=== PATIENT | female | born 1955 | race Caucasian/White ===

== ENCOUNTER 2023-03-21 06:20 | Day surgery (SDC) | payer OTHER ==
[~2023-03-21] VITALS: Ht 167.6 cm; Wt 71.8 kg
[2023-03-21 06:33] VITALS: BP 115/42
[2023-03-21] MEDS ORDERED: VITAMIN D250 MCG PO (06:35)
[2023-03-21] MEDS ORDERED: LIPITOR20 MG (06:35)
[2023-03-21] MEDS ORDERED: B COMPLEX1 EACH PO (06:36)
[2023-03-21 06:47] VITALS: BP 121/50
--- NOTE | 2023-03-21 08:50 | NUR ---
03/21/23 0893 George Fernandez 0838 PATIENT ARRIVED TO PACU AWAKE AND ALRT ABLE TO ANSWER QUESTIONS. PATIENT WAS ON 2L NC WITH SAT AT 98%. PATIENT DENIED PAIN AND NAUSEA. ENCOURAGED TO PASS GAS AT THIS TIME. PATIENT IS PASSING GAS SUCCESSFULLY AND IS CURRENTLY RESTING. 0845 PATIENT HAS PASSED GAS MULTIPLE TIMES. PATIENT STILL DENIES PAIN AND NAUSEA. PATIENT 02 HAS BEEN REMOVED AND IS SAT AT 93% ON ROOM AIR. PATIENT OFFERED THE CHANCE TO SIT UP WHEN READY.
[2023-03-21 09:02] VITALS: BP 110/65
--- NOTE | 2023-03-21 09:16 | NUR ---
0915: PT RETURNS TO DAYSURGERY VIA STRTCHER TO WAIT FOR CT SCAN. PRE AUTHORIZATION FILED BY MD KRYSTAL'S OFFICE. TC TO LAB AND NOTIFIED OF PT ARRIVAL. TECH TO COME DRAW. PT COMFORTABLE WITHOUT NEEDS. CALL LIGHT WITHIN REACH
[2023-03-21 09:25] LABS: BASOPHILS 0.4 % (0-2); EOSINOPHILS 0.7 % (0-6); HEMATOCRIT 36.9 % (35.0-50.0); HEMOGLOBIN 12.2 g/dL (12.0-18.0); LYMPHOCYTES 14.2 % (24-44); MCH 27.6 (27-36); MCV 83.6 fl (81-99); MONOCYTES 4.3 % (0-12); NEUTROPHILS 80.4 % (39-80); PLATELET COUNT 259 K/uL (140-440); RBC 4.41 M/ul (4.3-5.7); RDW 14.7 (10.5-15.0)
[2023-03-21 09:43] LABS: ALBUMIN 3.3 g/dL (3.4-5.0); ALBUMIN/GLOBULIN RATIO 1.14 (1.1-2.4); ANION GAP 9.6 (7-21); BILIRUBIN, TOTAL 0.5 ng/dL (0.2-1.0); BUN/CREATININE RATIO 10.6 (6.0-28.6); CALCIUM 8.6 mg/dL (8.5-10.1); CREATININE, SERUM 0.66 mg/dL (0.55-1.02); POTASSIUM 3.6 mmol/L (3.5-5.1); PROTEIN, TOTAL 6.2 g/dL (6.4-8.2)
[2023-03-22 13:45] LABS: CARCINOEMBRYONIC ANTIGEN 3.6 ng/mL (<=3.8)
--- NOTE | 2023-03-22 20:22 | OR ---
[facility] [address], [place] [address] Signed DATE OF OPERATION: 03/21/2023 SURGEON: Samira Rice MD PREOPERATIVE DIAGNOSES: 1. Persistent progressive diarrhea with excess flatulence. 2. Family history of cancer in father (unknown type). POSTOPERATIVE DIAGNOSIS: Rectosigmoid malignancy. PROCEDURES: 1. Total colonoscopy to cecum with hot snare polypectomy of adjacent appearing malignant polyp and biopsy of tumor. 2. Endomark tattoo application. ANESTHESIA: Intravenous sedation; fentanyl 150 mcg and Versed 7 mg. INDICATION: This 67-year-old white woman is a patient of COURT Chang. She is referred for colonoscopy. She has never had colon evaluation in the past. She has a family history of cancer in her father of an unknown type. The patient has had progressive diarrhea and complains of gas, but no blood per rectum. She is admitted at this time to undergo colonoscopy. She understands the risk of bleeding, infection, and perforation. FINDINGS: Malignancy was identified. This was at the rectosigmoid. It extended from 15 cm from the anal verge proximally to about 25 cm. Circumferential involvement was noted. A separate malignant-appearing polyp was noted inferior to the lower margin of the tumor, which was excised with hot snare technique. Tattoo was applied proximally and distally. The amount of rectum spared is probably 10 cm to 15 cm. More proximal colon showed no sign of lesion. The prep cephalad to the lesion was poor, though adequate for identification of gross lesions. DESCRIPTION OF PROCEDURE: The patient was brought to the endoscopy suite and placed in the lateral decubitus position, given intravenous sedation to the point of slurred speech and nystagmus. Full cardiopulmonary monitoring was maintained. Digital rectal examination was normal. Electronically Signed By: SAMIRA RICE MD 03/22/232021 PATIENT NAME: TONA SHELBY OPERATIVE REPORT DATE OF : 57 REPORT #: [id number] PHYSICIAN: SAMIRA RICE MD PCP: NATHALY CALDERÓN PA-C REPORT IS CONFIDENTIAL AND NOT TO BE RELEASED WITHOUT AUTHORIZATION [facility] [address], [place] [address] Signed An Olympus video colonoscope was passed in the rectum and manipulated into the rectosigmoid where immediately noted was a polypoid lesion highly suspect for malignancy. With various manipulations, the scope was passed beyond this and more proximally in the colon. The more proximal colon was poorly prepped overall. Irrigation was required. The scope was advanced as far as possible ultimately intubating the right colon and visualizing the cecum. Irrigation was undertaken and the scope was then withdrawn. There were no proximal lesions of concern. At approximately 25 cm from the anal verge, the neoplasm was identified once again. Multiple biopsies were taken of the circumferentially involved lesion. Endomark tattoo dye was applied to identify the more proximal margin for the future. The scope was withdrawn and a bulky polyp adjacent to the frankly neoplastic lesion was identified and excised with hot snare technique. Distal to this, Endomark tattoo dye was applied. As best can tell the lesion is approximately 15 cm from the anal verge and the rectum itself was normal. Retroflexed view showed no sign of abnormality. The scope was withdrawn and removed. The patient was taken to the recovery room in good condition. CONCLUDING DIAGNOSIS: Malignancy of the rectosigmoid. PLAN: She will need low anterior resection. We will obtain a CT scan and lab studies including Chem 20, CBC and a CEA. MD CHUCK Chacon/SANDORL /[id number] cc: Nathaly Calderón PA-C Copies: NATHALY CALDERÓN PA-C ~ Electronically Signed By: SAMIRA RICE MD 03/22/232021 PATIENT NAME: TONA SHELBY OPERATIVE REPORT DATE OF : 57 REPORT #: [id number] PHYSICIAN: SAMIRA RICE MD PCP: NATHALY CALDERÓN PA-C REPORT IS CONFIDENTIAL AND NOT TO BE RELEASED WITHOUT AUTHORIZATION
--- NOTE | 2023-03-25 14:44 | PATH ---
[facility] [address], [place] [address] Signed SPECIMEN(S): A COLON BIOPSY AT 18 CM SPECIMEN(S): B COLON POLYP AT 15 CM SPECIMEN SOURCE: A. COLON BIOPSY AT 18 CM B. COLON POLYP AT 15 CM CLINICAL HISTORY: Colonoscopy. Screening. Diarrhea/gas FINAL PATHOLOGIC DIAGNOSIS: A. Colon biopsy at 18 cm: - Invasive moderately-differentiated adenocarcinoma. B. Colon polyp at 15 cm: - Tubular adenoma. - Polyp stalk is free of dysplasia on these sections. COMMENT: Microsatellite instability testing by immunohistochemistry is pending and will be reported in an addendum. The diagnostic notification to the office of Dr. Villavicencio is initiated by Dr. Heck and will be recorded separately. As part of [facility]' Quality Improvement Program, this case was reviewed by another member of our pathology staff. JVR:BOBY:luz MICROSCOPIC EXAMINATION: Histologic sections of all submitted blocks are examined by light microscopy. These findings, together with the gross examination, support the pathologic diagnosis. GROSS DESCRIPTION: A. The specimen, labeled and designated "Tip, colon biopsy at 18 cm," is received in formalin and consists of five hawthorne soft tissue fragments, ranging from 0.1-0.4 cm. Entirely submitted in (A1). B. The specimen, labeled and designated "Tip, colon polyp at 15 cm," is received in formalin and consists of a bosselated polyp of red-brown soft tissue (2.5 x 1.5 x 1.5 cm). The possible resection margin is inked blue, and the tissue is serially sectioned to reveal brown-hawthorne soft cut surfaces. The specimen is submitted entirely in cassette (B1-B3). PATIENT NAME: TONA SHELBY PATHOLOGY DATE OF : 57 REPORT #: [id number] PHYSICIAN: DONNIE AVENDANO PCP: AMY CHAN PA-C REPORT IS CONFIDENTIAL AND NOT TO BE RELEASED WITHOUT AUTHORIZATION [facility] [address], [place] [address] Signed VB (under the direct supervision of a pathologist) The Gross Description was prepared using a voice recognition system. The report was reviewed for accuracy; however, sound-alike word errors, addition and/or deletions may occur. If there is any question about this report, please contact Client Services. PERFORMING LABORATORY: Technical component was performed by [facility], [address] [place] [address] (CLIA# [id number]). Professional interpretation was performed by [facility] - [address] [address] (CLIA#: [id number]). Diagnostician: Oumar Heck MD Pathologist Electronically Signed 03/25/2023 Copies: ~ PATIENT NAME: TONA SHELBY PATHOLOGY DATE OF : 57 REPORT #: [id number] PHYSICIAN: DONNIE AVENDANO PCP: AMY CHAN PA-C REPORT IS CONFIDENTIAL AND NOT TO BE RELEASED WITHOUT AUTHORIZATION
== END 2023-03-21 09:07 | disposition home or self-care (01) ==
LOC: OPS 06:20 → DS 06:20 → OPS 07:30 → DS 07:30 → OPS 09:07
PROVIDERS: ATTEND Surgery
PROC: 0DBN8ZX Excision of Sigmoid Colon, Via Natural or Artificial Opening Endoscopic, Diagnostic (ICD-10-PCS; principal; 2023-03-21 07:30)
DX: C19 Malignant neoplasm of rectosigmoid junction (principal); D12.6 Benign neoplasm of colon, unspecified; E78.5 Hyperlipidemia, unspecified; Z80.0 Family history of malignant neoplasm of digestive organs; Z80.9 Family history of malignant neoplasm, unspecified; Z88.2 Allergy status to sulfonamides; Z90.711 Acquired absence of uterus with remaining cervical stump; Z90.49 Acquired absence of other specified parts of digestive tract
CPT/HCPCS: 36415; 74177; 80053; 82378; 85025; 99153; G0500; J2250; J3010; J7121; Q9967

== ENCOUNTER 2023-04-12 11:14 | Inpatient (IN) | payer OTHER ==
[~2023-04-12] VITALS: Ht 167.6 cm; Wt 65.0 kg
[~2023-04-12 11:14] MED LIST: LIPITOR20 MG PO; VITAMIN B-125000 MCG SL; VITAMIN D250 MCG PO
[2023-04-13 13:22] VITALS: BP 113/57
[2023-04-19 08:27] VITALS: BP 102/73
[2023-04-19] MEDS ORDERED: VITAMIN D350 MC3 PO (08:29)
--- NOTE | 2023-04-19 15:44 | NUR ---
04/19/23 1544 Sheets,Christel 1538 PT ARRIVED TO PACU ON 6L VIA MASK, CHIN LIFT USED OFF AND ON TO MAINTAIN AIRWAY, PT NONAROUSABLE. VSS.
[2023-04-19 16:30] VITALS: BP 90/49
--- NOTE | 2023-04-19 16:30 | NUR ---
RECIEVED REPORT FROM REGLA NESS. PT ARRIVES TO UNIT IN BED. FAMILY IN ROOM. PT DENIES PAIN AT THIS TIME. VSS. CPOX IN PLACE, O2 SATURATION >95%. PT WAS 98% ON 2L VIA NC, RA TRIAL WITH PT CONTINUING TO HAVE O2 SATURATION >95%. PT A+O X3. PT DENIES NAUSEA AT THIS TIME, WATER AT THE BEDSIDE, PT TAKING SMALL SIPS. EDUCATION ON NOT DRINKING WATER TOO QUICKLY AFTER SURGERY, PT VERBALIZES UNDERSTANDING. ABDOMEN SOFT, TENDER TO PALPATION, BOWEL TONES ACTIVE IN ALL QUANDRANTS. LAST BM TODAY PRIOR TO SURGERY. PT ON CLEAR LIQUID DIET, TOLERATING SMALL SIPS OF WATER. MORALES CATHETER IN PLACE, PRESENT ON ADMISSION DRAINING QUANTITY SUFFICIENT CLEAR YELLOW URINE VIA GRAVITY. MIDLINE INCISION COVERED WITH ACTICOAT PER PACU NURSE. INCISION SITE WNL, NO REDNESS/SWELLING. SMALL AMOUNT OF RED SHADOWING ON DRESSING. SANDIE DRAIN IN PLACE IN LLQ, INSERTION SITE COVERED WITH SURGICAL DRESSING, DRESSING C/D/I. SMALL AMOUNT OF RED DRAINAGE PRESENT IN DRAIN BULB. PT STATES NO NEEDS AT THIS TIME, FAMILY AT THE BEDSIDE, CALL LIGHT EDUCATION PROVIDED, PT VERBALIZES UNDERSTANDING, BED RAILS UP.
[2023-04-19 17:18] VITALS: BP 96/38
--- NOTE | 2023-04-19 17:24 | NUR ---
VSS. CPOX IN PLACE, O2 SATURATION >95% ON RA. RECEIVED CALL FROM DR. RICE, NEW ORDERS GIVEN, ENTERED, REPEAT BACK PERFORMED. LUNG SOUNDS CLEAR, PT TOLERATING RA WITH O2 SATURATION >95%. ABDOMEN SOFT, TENDER TO PALPATION. SURGICAL DRESSING UNCHANGED SINCE PREVIOUS. MORALES CATHETER REMAINS IN PLACE, DRAINING CLEAR YELLOW URINE VIA GRAVITY. SANDIE DRAIN UNCHANGED FROM PREVIOUS. PT DENIES PAIN AT THIS TIME. PT STATES NO FURTHER NEEDS AT THIS TIME, CALL LIGHT WITHIN REACH, FAMILY AT THE BEDSIDE.
--- NOTE | 2023-04-19 17:30 | NUR ---
REPORT RECIEVED FROM REGLA NESS. REGLA ROMERO ASSUMING CARE OF WITH ASSISTANCE FROM THIS RN.
--- NOTE | 2023-04-19 18:13 | NUR ---
PT POST-OP DAY 0 FROM SIGMOID COLECTOMY. PT HAS NOT AMBULATED SINCE ARRIVING TO UNIT THIS AFTERNOON. PT ON CLEAR LIQUID DIET, TOLERATING SIPS OF WATER WELL. LAST BM THIS MORNING PRIOR TO SURGERY. BLOOD PRESSURE HAS BEEN SOFT SINCE PRIOR TO SURGERY. PT IS A CURRENT SMOKER, NICOTINE PATCH PROVIDED PER PT REQUEST. CPOX IN PLACE D/T SURGERY TODAY, O2 SATURATION >95% ON RA. SURGICAL INCISION COVERED WITH ACTICOAT PER PACU NURSE, SMALL AMOUNT OF RED SHADOWING UPON ARRIVAL TO UNIT, UNCHANGED THIS EVENING. SANDIE DRAIN IN PLACE, DRESSING C/D/I, SMALL AMOUNT OF RED DRAINAGE IN DRAIN BULB. PT DENIES PAIN THROUGHOUT EVENING. FAMILY AT THE BEDSIDE THIS EVENING, PT EDUCATED ON USE OF CALL LIGHT, HAS NOT USED CALL LIGHT YET.
[2023-04-19 18:27] VITALS: BP 106/37
--- NOTE | 2023-04-19 18:30 | NUR ---
PT DENIES PAIN AT THIS TIME, STATES SHE IS AWARE OF SOME PRESSURE IN HER LOWER ABDOMEN AND OCCASIONALLY IN HER SHOULDERS, EDUCATION GIVEN ON REFERRED PAIN, PT VERBALIZES UNDERSTANDING, PT DENIES NEED FOR PAIN MEDICATION AT THIS TIME. VSS. PT DENIES NEEDS AT THIS TIME, EATING DINNER IN BED, FAMILY AT THE BEDSIDE, CALL LIGHT WITHIN REACH, BED RAILS UP.
--- NOTE | 2023-04-19 19:05 | NUR ---
SHIFT REPORT RECEIVED FROM DAYSHIFT REGLA OMALLEY AND REGLA ROMERO, pt AWAKE ADN RESTING IN BED. IV FLUIDS INFUSING DIRECTED, IV SITES X2 WNL. pt ON RA, RR EVEN AND UNLABORED, NO DISTRESS NOTED. FAMILY IN ROOM VISITING. CALL LIGHT IN REACH.
[2023-04-19 19:17] VITALS: BP 94/57
--- NOTE | 2023-04-19 20:42 | NUR ---
ASSESSMENT COMPLETE, SCHEDULED EMDS GIVEN-SEE EMAR. pt AWAKE AND REPORTS PAIN IS MINIMAL, RATES AT 1-2/10, DENIES NEED FOR PAIN MEDICATION. AMINATA DRAIN EMPTIED FOR 35 SANGUINEOUS MLS, SMALL AMOUNT SHADOWING NOTED TO AMINATA DRAIN DRESSING. VERY SMALL SPOT OF RED SHADOWING NOTED TO MIDLINE INCISION. pt DENIES NAUSEA, BT ACTIVE. CMS INTACT, pt DENIES NUMBNESS AND TINGLING. SCD'S IN PLACE. DR RICE CALLED AND GIVEN UPDATE ON pt, INCLUDING AMINATA OUTPUT OF 35MLS, LAST VS SHOW SBP AT 94 (pt NONSYMPTOMATIC) AND OVERALL PAIN AND NAUSEA STATUS. ALSO CLARIFIED WITH DR RICE THERE ARE NO CURRENT ABX'S IN EMAR. TELEPHONE ORDER READ BACK FOR 2GM ANCEF IV Q8H AND FLAGYL 1 GRAM IV DAILY. BI DATA ARCHITECTREGLA VEGA UPDATED ALONG WITH pt AND . CALL LIGHT IN REACH. WILL CONTINUE TO MONITOR.
--- NOTE | 2023-04-19 22:22 | NUR ---
PT CALLED REQUESTED ICE WATER. STATES SHE WILL BE GLAD TO GO HOME WHEN READY, BUT UNDERSTANDS IT IS A PROCESS THAT TAKES TIME. AT BEDSIDE
--- NOTE | 2023-04-19 23:12 | NUR ---
ROUNDED ON pt, pt AWAKE AND RESTING IN BED. ON RA, RR EVEN AND UNLABORED. 98% ON RA, HR 74. BP RECHECKED AND WNL AT 103/40, MAP OF 56. pt DENEIS NEEDS OR CONCERNS. NO NEW SHADOWING NOTED TO EITHER SANDIE DRAIN DRESSING OR MIDLINE DRESSING. CALL LIGHT IN REACH, SCANT SANGUINEOUS/RED OUTPUT NOTED IN SANDIE DRAIN.
[2023-04-19 23:20] VITALS: BP 103/40
--- NOTE | 2023-04-20 00:38 | NUR ---
SCHEDULED IV ABX INFUSING DIRECTED, IV SITES X2 REMAINS WNL. pt DENIES ADDITIONAL NEEDS OR CONCERNS. CALL LIGHT IN REACH.
[2023-04-20 00:49] VITALS: BP 115/45
--- NOTE | 2023-04-20 01:11 | NUR ---
ASSESSMENT AND VITAL SIGNS DONE. pt UP TO CHAIR, 1 PA WITH FWW. CLEAR ENSURE GIVEN TO pt. pt C/O OF BACK PAIN AND PAIN IN LOWER ABDOMINAL AREA. pt DENIES PAIN MEDIACTION AT THIS TIME. MIDLINE DRESSING HAS SCANT AMMOUNT OF SHADOWING. SANDIE DRIAN DRESSING HAS MODERATE AMMOUNT OF SHADOWING. SS FLUID IN SANDIE DRAIN. EDUCATION pt ON PAIN MANAGEMENT AND TO CALL BEFORE PAIN IS INTOLERABLE. MORLAES EMPTIED. CALL LIGHT IN ROOM. NO OTHER NEEDS AT THIS TIME.
--- NOTE | 2023-04-20 01:44 | NUR ---
ASSISTED PATIENT FROM CHAIR TO BED WITH 's HELP. CPOX AND SCD'S ARE ON. WARM BLANKET PROVIDED. DENIES FURTHER NEEDS AT THIS TIME.
--- NOTE | 2023-04-20 02:13 | NUR ---
pt C/O 09/15 PAIN. PRN IV PAIN MADICATION ADMINISTERED. NEW BAG OF IVF INFUSING. CALL LIGHT WITHIN REACH. NO OTHER NEEDS AT THIS TIME.
--- NOTE | 2023-04-20 03:46 | NUR ---
PATIENT RESTING IN BED. pt STATES SHE FEELS BETTER AFTER THE PRN PAIN MEDICATION. pt DENIES ANY MORE PAIN AT THIS TIME. CALL LIGHT WITHIN REACH.
[2023-04-20 05:39] LABS: BASOPHILS 0.3 % (0-2); HEMATOCRIT 32.3 % (35.0-50.0); HEMOGLOBIN 10.5 g/dL (12.0-18.0); LYMPHOCYTES 9.8 % (24-44); MCH 26.9 (27-36); MCHC 32.5 g/dl (30-36); MCV 82.8 fl (81-99); MONOCYTES 7.1 % (0-12); NEUTROPHILS 82.8 % (39-80); PLATELET COUNT 202 K/uL (140-440); RBC 3.91 M/ul (4.3-5.7)
[2023-04-20 05:59] LABS: ALBUMIN 2.5 g/dL (3.4-5.0); ALBUMIN/GLOBULIN RATIO 0.96 (1.1-2.4); ANION GAP 12.6 (7-21); BILIRUBIN, TOTAL 0.3 ng/dL (0.2-1.0); BUN/CREATININE RATIO 18.75 (6.0-28.6); CALCIUM 7.9 mg/dL (8.5-10.1); CREATININE, SERUM 0.64 mg/dL (0.55-1.02); POTASSIUM 3.6 mmol/L (3.5-5.1); PROTEIN, TOTAL 5.1 g/dL (6.4-8.2)
[2023-04-20 06:25] VITALS: BP 102/40
--- NOTE | 2023-04-20 06:45 | NUR ---
nikko farris site leaking around drain site due to slit in opsite. scrap charger nitin in to assess and made aware. dressing reinforced with additional slit marko drain dressing. vital signs and I&O's done. iv site assessed, wnl.
--- NOTE | 2023-04-20 07:28 | NUR ---
RECEIVED REPORT FROM REGLA KAMARA. PT AWAKE AND ALERT IN BED WITH AT THE BEDSIDE. PT STATES NO NEEDS AT THIS TIME, CALL LIGHT WITHIN REACH, BED RAILS UP.
--- NOTE | 2023-04-20 07:45 | NUR ---
REPORT RECEIVED FROM DIONTE ARAUZ. PT RESTINGIN BED, AWAKE AND ALERT. RESPIRATIONS EVEN AND UNLABORED WITH OXGYEN SATURATION 98% ON RA. MIDLINE DRESSING UNCHANGED FROM YESTERDAY. SANDIE DRAIN WNL WITH SMALL AMMOUNTS OF RED DRAINAGE SEEN IN BULB. HEATHER ARAUZ ASSUMING CARE OF PT WITH ASSISTANCE FROM THIS RN. PT REPORTS 4/10 PAIN IN RIGHT FLANK AREA AT THIS TIME THAT SHE REPORTS IS WELL CONTROLLED. PT DENIES NEED FOR PAIN MEDICAITON AT THIS TIME. NO ADDITIONAL REQEUSTS OR COMPLAINTS. BED RAILS UP. CALL LIGHT WITHIN REACH. BED ALARM ON.
--- NOTE | 2023-04-20 08:09 | NUR ---
PT STATES PAIN IS 4/10, REQUESTS PAIN MEDICATION, GIVEN. PT UP FOR WALK WITH RN AND , GETS UP AND WALKS 2 LAPS AROUND UNIT WITH FWW, NO ASSIST NEEDED. CPOX REMAINS IN PLACE, PT REMAINS AT >95% O2 SATURATION BEFORE AND AFTER WALK. PT HAS SCDs IN PLACE WHILE IN BED. PT DENIES NAUSEA AT THIS TIME, ABDOMEN SOFT, TENDER. BOWEL TONES ACTIVE, LAST BM MORNING BEFORE SURGERY. PT TOLERATING CLEAR LIQUID DIET WELL. DRESSING ON MIDLINE SURGICAL INCISION REMAINS INTACT, SMALL AMOUNT OF RED/BROWN SHADOWING PRESENT ON DRESSING. SANDIE DRAIN REMAINS IN PLACE WITH SEROSANGUINOUS DRAINAGE PRESENT IN BULB AND TUBING, INSERTION SITE DRESSING SATURATED WITH SEROSANGUINOUS DRAINAGE, REMAINS COVERED WITH ADDITIONAL GAUZE. DR. RICE CALLED AND UPDATED ON PT STATUS AND ASSESSMENT, ORDERS TO DC IVF, ENTERED, REPEAT BACK PERFORMED. PT STATES NO FURTHER NEEDS AT THIS TIME, CALL LIGHT WITHIN REACH, FAMILY AT THE BEDSIDE, PT UP TO CHAIR AFTER WALK TO EAT BREAKFAST.
--- NOTE | 2023-04-20 08:29 | NUR ---
PT REQUEST TYLENL PRIOR TO AMBULATION. PHARMACY STATES PT IS TOLERATING PO AND IV TYLENOL IS NO LONGER INDICATED. DR. RICE CONSULTED AND NEW ORDERS GIVEN. ORDERS ENTERED, REPEAT BACK PERFORMED. DR. RICE TO BEDSIDE FOR ROUNDS. UPDATED ON PT STATUS AND ASSESSMENT. NO ADDITIONAL NEW ORDERS AT THIS TIME.
--- NOTE | 2023-04-20 09:08 | OR ---
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 POSTOPERATIVE DIAGNOSES: 1. Mid rectal cancer. No evidence of metastatic disease. 2. Palpable nodule left lateral segment of liver (biopsied probable benign cyst). PROCEDURES: 1. Low anterior resection of mid rectal tumor with side-to-end coloproctostomy with total mesorectal excision. 2. Mobilization of splenic flexure. 3. Liver biopsy, left lateral segment. ANESTHESIA: General endotracheal, Gregg Prince, AGRICULTURAL EDUCATION INSTRUCTOR and bilateral TAP block. HISTORY OF PRESENT ILLNESS: This 67-year-old white woman is a patient of COURT Chang. She was seen by me for colonoscopy screening on March 21, 2023. The patient had a premonition that she might have malignancy actually. Indeed, colonoscopy did find a bulky neoplasm at 18 cm considered to be the rectosigmoid and on CT scan confirmed to be in that area. There is no sign of obvious metastatic disease. There was a lesion of the left lobe of the liver which was simple and round and probably a cyst. Her options of management and issues related to the abnormality have been reviewed. A moderately differentiated adenocarcinoma was noted and preop CEA level was less than 4. She is admitted at this time to undergo resection of the tumor. She understands the risk of bleeding, infection, anastomotic failure, left ureteral injury, need for additional procedures and need for additional treatment should metastatic disease be identified in the mesentery. Understanding that she wished to proceed. FINDINGS: The lesion was bulky -- more so than I saw clinically. It was located in the mid rectum. Wide resection was undertaken with a clinically negative distal margin and wide resection of the rectal mesentery and sigmoid mesentery. An extraordinarily "floppy" sigmoid was noted. All of the sigmoid was resected as was the lymphatic distribution Electronically Signed By: SAMIRA RICE MD 04/20/23 0908 PATIENT NAME: TONA SHELBY OPERATIVE REPORT DATE OF : 57 REPORT #: [id number] PHYSICIAN: SAMIRA RICE MD PCP: NATHALY CALDERÓN PA-C REPORT IS CONFIDENTIAL AND NOT TO BE RELEASED WITHOUT AUTHORIZATION [facility] [address], [place] [address] Signed related to the neoplasm itself. Endo henok tattoo dye was well distributed in the in the region and some perirectal lymph nodes had uptake of the dye it was noted. A tension-free side-to-end coloproctostomy was accomplished (Johnson anastomosis). Mobilization of splenic flexure was undertaken. The small bowel was otherwise normal on cursory exam. Palpation of the liver revealed the nodule of the left lateral segment, which was biopsied with a biopsy gun device showing egress of clear fluid and scant amount of parenchyma within the biopsy specimen and essentially resolution of the palpable lesion. There was a very minute less than 5 mm nodule of the right lobe of the liver, not otherwise visible or suspicious. She certainly had no sign of carcinomatosis or other abnormality. There appeared to be surgical absence of the gallbladder and I saw no evidence of right or left tubes and ovary as she has had a complete hysterectomy in the past. DESCRIPTION OF PROCEDURE: The patient was brought to the operating room, given a general endotracheal anesthetic. A Ricks catheter was placed. She had undergone a full mechanical bowel prep and was given preoperative antibiotics, Ancef and Flagyl as well. Palpation of the relaxed abdomen revealed no palpable mass. She has no ascites or other abnormality. The abdomen was prepared with chlorhexidine solution and draped sterilely. An incision was made inferior to the umbilicus and extended inferiorly maintaining a small incision as possible. Given her thin body habitus, this was reasonably able to be done. The Bookwalter retractor was affixed to the table. Intra-abdominal inspection showed no sign of ascites or carcinomatosis. The small bowel appeared normal. The left colon and sigmoid was impressively redundant in every way. Endo henok tattoo dye was noted and traced down to the low pelvis. She had a rather deep pelvis. The neoplasm itself was bulky, indeed the size of a plum, essentially. There was no sign of transgression of the tumor through the rectal wall. The lesion extended somewhat below the peritoneal reflection. The small bowel was isolated and packed into the right side of the abdomen. Palpation in the retroperitoneum showed no sign of suspicious adenopathy. The white line of Toldt was incised with electrocautery with great care, ultimately mobilizing the entire redundant sigmoid and much of the left colon. Dissection was carried medially identifying the sigmoid artery and other branches inferior to it, which would be resected with the specimen. Reflecting the sigmoid medially and incising the white line of Toldt and extending the dissection down over the pelvic brim, the ureter was easily identified as was the left iliac artery. This was maintained in visualization throughout the dissection. Dissection was undertaken widely around the bulky mass which is in the mid to upper rectum. Dissection carried inferiorly as far as possible. There was surgical absence of the uterus, tubes, and ovaries. With meticulous care, the sigmoid mesentery was incised to include the sigmoidal mesenteric lymph nodes and the vascular pedicles secure with 0 silk ties, doubly applied to the major vascular arcades. The colon was transected at the junction of the left colon and the sigmoid colon with a JOSE E stapling device. The proximal stapled end was over sewn with 3-0 silk suture, Electronically Signed By: SAMIRA RCIE MD 04/20/23 0908 PATIENT NAME: TONA SHELBY OPERATIVE REPORT DATE OF : 57 REPORT #: [id number] PHYSICIAN: SAMIRA RICE MD PCP: NATHALY CALDERÓN PA-C REPORT IS CONFIDENTIAL AND NOT TO BE RELEASED WITHOUT AUTHORIZATION [facility] [address], [place] [address] Signed anticipating a side to end anastomosis. Dissection of the mesentery was carried over the sacral promontory using a total mesorectal excision technique. The sacral hollow was well identified and wide resection of the rectal mesentery undertaken. special care was taken to keep rectal mesentery with the specimen. Wide lateral resection was undertaken mindful of the position of the left ureter. Some lymph nodes adherent within the perirectal fat which had taken up tattoo dye as well. Anterior dissection freed the previous vaginal cuff. A few small clips were applied in the pelvis as necessary for the deeper vessels, but wide resection was maintained. The bulky tumor was carefully assessed and a wide distal margin was accomplished. Once the mesentery of the perirectal fat and the rectal mesentery were fully isolated, a right angle bowel clamp was applied to the mid to lower rectum indicative of site for transection maintaining a generous distal margin. An additional clamp was applied proximal to the low pelvic right angle bronchus clamp occluding the low to mid rectum. The site was isolated with laparotomy packs and the rectum transected with prostate scissors. Specimen was passed off the table, noted to have a very bulky appearance as well as some central ulceration. The distal margin of resection was 2-3 cm. The left colon --though relatively mobile-- required further mobility to allow for low pelvic anastomosis. The white line of Toldt was incised with electrocautery and the left colon mesentery freed from the retroperitoneum. Two small areas of small bowel were oversewn in the serosa where small serosal disruption was noted from manipulation. Once the left colon was fully mobilized to allow for a tension free low anastomosis, a side to end ( Johnson ) anastomosis was then performed. Using a two-layer technique of interrupted 3-0 silk suture, a side-to-end (Johnson) coloproctostomy was accomplished. The anastomosis was watertight. Gloves were changed for all members of the operative team. Re inspection of the deep pelvis and copioius saline irrigation was undertaken in the pelvis assuring good hemostasis. The mesenteric defect of the left colon was secured to the remaining peritoneum over the sacral promontory minimizing chance of transmesenteric herniation. Through a left lower quadrant incision, a 7 mm flat Pavel drain was insinuated to the perirectal space deep within the pelvis. Moreno hemostatic powder agent was applied to the raw surfaces of the low pelvis. The drain was secured with nylon suture to the abdominal wall. The small bowel was allowed to return to its natural anatomic position. Palpation of the liver itself was undertaken showing a palpable nodule of the left lateral segment of the liver. The area was marked with electrocautery and using a biopsy gun device, biopsies were obtained. This showed Electronically Signed By: SAMIRA RICE MD 04/20/23 0908 PATIENT NAME: TONA SHELBY OPERATIVE REPORT DATE OF : 57 REPORT #: [id number] PHYSICIAN: SAMIRA RICE MD PCP: CALDERÓN,NATHALY K PA-C REPORT IS CONFIDENTIAL AND NOT TO BE RELEASED WITHOUT AUTHORIZATION [facility] [address] [facility] [place], [place] [address] Signed egress of clear fluid, highly likely to be a benign cyst as the CT scan had intimated. What minimal hepatic parenchyma was included in the biopsy was sent for pathology, however. Palpation of the right lobe showed no gross surface lesions, only a small less than 5 mm nodule on the right lobe not amenable to biopsy at this time. There was scarring in the subhepatic space indicative of prior cholecystectomy. The omentum was replaced into the low abdomen covering the intra-abdominal viscera. Closure was then undertaken with running bidirectional #1 PDS suture. Subcutaneous tissue was irrigated and skin closed with running subcuticular 3-0 Vicryl. Steri-Strips were applied as were Acticoat dressings to the incision as well as the drain egress site in the left lower quadrant. TAP blocks were then undertaken by the cloth shrinker to provide postoperative analgesic benefit. Blood loss was less than 100 mL. Sponge, needle, and instrument counts were reported as correct x3. MD CHUCK Chacon/TABATHA /[id number] cc: Nathaly Calderón PA-C Copies: NATHALY CALDERÓN PA-C ~ Electronically Signed By: SAMIRA RICE MD 04/20/23 0908 PATIENT NAME: TONA SHELBY OPERATIVE REPORT DATE OF : 57 REPORT #: [id number] PHYSICIAN: SAMIRA RICE MD PCP: NATHALY CALDERÓN PA-C REPORT IS CONFIDENTIAL AND NOT TO BE RELEASED WITHOUT AUTHORIZATION
--- NOTE | 2023-04-20 10:15 | NUR ---
PT STATES PAIN IS 4/10, REQUESTS PAIN MEDICATION, GIVEN. SANDIE DRAIN DRESSING SATURATED, ADDITIONAL DRESSING SATURATED. REPLACED ADDITIONAL DRESSING WITH GAUZE AND TAPE. DRAINAGE SEROSANGUINOUS. PT STATES NO FURTHER NEEDS AT THIS TIME, CALL LIGHT WITHIN REACH, BED RAILS UP.
[2023-04-20 10:16] VITALS: BP 101/44
--- NOTE | 2023-04-20 11:17 | NUR ---
PT STATES PAIN IS 3/10, DENIES NEED FOR PAIN MEDICATION. PT STATES SHE WANTS TO GET UP TO WALK "ANOTHER COUPLE OF LAPS HERE SOON". PT STATES NO NEEDS AT THIS TIME. DAUGHTER AT THE BEDSIDE, CALL LIGHT WITHIN REACH, BED RAILS UP.
--- NOTE | 2023-04-20 11:39 | NUR ---
MS ROUNDS. CONNECTED WITH PT AND DAUGTHER PT WAS AMBULATING IN [place]. PT AND DAUGHTER EXPRESSED HOPE. EXPRESSED SATISFACTION WITH CARE. PROVIDED HOSPITALITY. PROVIDED PRAYER.
--- NOTE | 2023-04-20 12:28 | NUR ---
LUNCH DELIVERED TO PT. PT REMAINS UP TO CHAIR. SIPPING ON CLEAR LIQUIDS. PT TOLERATING LIQUIDS WELL. PT DENEIS NAUSEA. PT DENIES PAIN BUT FOR AND OCCATIONAL "CRAMPING." PT DENIES NEED FOR PAIN MEDICATION. SANDIE SITE CONTINUES TO LEAK SEROUSANGUINOUS FROM INCERTION SITE. MEPLEX DRESSING LOOSE AND FALLIGN OFF SITE, REMOVED AND BIFOCATED GAUZE APPLIED, LIGHTLY TAPED TO SKIN, SANDIE DRAIN REMAINS SUTURED IN PLACE. SANDIE DRAIN BULB EMPTIED OF 40ML SEROUSANGUINOUS FLUID, EDUCATION DONE WITH PT REGARDING HOW TO EMPTY BULB. PT VERBALIZES UNDERSTING. FAMILY AT BEDSIDE. NO ADDTIONAL REQUESTS OR COMPLAINTS. CALL LIGHT WIIN REACH.
--- NOTE | 2023-04-20 12:55 | NUR ---
UR NOTE MCG BOWEL SURGERY: COLECTOMY, PARTIAL WITH OR WITHOUT OSTOMY (ISC) INPATIENT 04/19/23 MET CLINICAL INDICATIONS FOR PROCEDURE GL DAY 1 04/20/23 MET CLINICAL INDICATIONS FOR GL DAY 2
[2023-04-20 13:23] VITALS: BP 105/32
--- NOTE | 2023-04-20 13:34 | NUR ---
Met with Yasmine, spouse, niece and her daughter. Yasmine and family are familiar to me as they come in frequently with her uncle. Yasmine lives in a house with 6 steps in and sunken living room with 2 steps. She is very active and does not feel she will have any issues getting in her home. She has been walking in the lira with her spouse today. She states she does the household chore, cooking, shopping, cleaning. Spouse has taken 3 weeks off and family will assist her. Pt drives and denies any financial issues. Pt plan on dc to home by Tuesday, she is not sure if is in agreement with this. Pt states she is bored in the hospital. I offered coloring books and word searches. She states family brought these in to her. No needs at this time, home when cleared medically.
--- NOTE | 2023-04-20 14:10 | NUR ---
PT LYING IN BED AFTER WALKING 4 LAPS AROUND UNIT WITH FWW. STATES PAIN IS 4/10, REQUESTS PAIN MEDICATION WHEN DUE. SURGICAL DRESSING ON MIDLINE INCISION UNCHANGED FROM MORNING ASSESSMENT. BOWEL TONES CONTINUE TO BE ACTIVE, NO BM OR FLATULENCE YET, PT CONTINUES TO TOLERATE CLEAR LIQUID DIET WELL. CATHETER REMAINS IN PLACE, WNL, QUANTITY SUFFICIENT CLEAR YELLOW URINE PRESENT IN BAG. SANDIE DRAIN IN PLACE, GUAZE SATURATED WITH SEROSANGUINOUS FLUID, REPLACED. RED SEROSANGUINOUS FLUID PRESENT IN TUBING AND BULB, EMPTIED, PT EDUCATION ON EMPTYING DRAIN AND APPLYING SUCTION, PT VERBALIZES UNDERSTANDING. PT STATES NO NEEDS AT THIS TIME, CALL LIGHT WITHIN REACH, BED RAILS UP, AT THE BEDSIDE. CPOX DC'D D/T PT REMAINING >95% WITH ACTIVITY AND REST.
--- NOTE | 2023-04-20 14:42 | NUR ---
PT SITTING UP IN BED ALERT AND AWAKE VISITING WITH DAUGHTER. PT STATES PAIN IS 4-5/10 AND REQUESTS PAIN MEDICATION, GIVEN. PT STATES NO FURTHER NEEDS AT THIS TIME, CALL LIGHT WITHIN REACH, BED RAILS UP, DAUGHTER AND AT THE BEDSIDE.
--- NOTE | 2023-04-20 15:38 | NUR ---
PATIENT SO FAR TODAY HAS WALKED FIFTEEN LAPS AROUND MED SURG. FAMILY WITH HER.
--- NOTE | 2023-04-20 15:40 | NUR ---
PT UP FOR WALK AROUND UNIT WITH DAUGHTER AND USING FWW. PT STATES PAIN REMAINS AT 4/10 AT THIS TIME, DENIES NEED FOR PAIN MEDICATION. PT STATES NO NEEDS AT THIS TIME.
--- NOTE | 2023-04-20 16:38 | NUR ---
THIS RN TO ROOM TO CHECK ON PT. PT UP TO CHAIR, VISITING WITH FAMILY. PT DENIES PAIN AND NAUSEA BUT FOR AN OCCATIONAL CRAMP. PT DENIES NEED FOR MEDICATION. PT EMPTIES SANDIE DRAIN OF 80ML PINK FLUID. PT DEMONSTRATES PROPER SANDIE DRAIN EMPTING TECHNIQUE. PT DENIES ADDITIONAL REQUESTS OR COMPLAINTS. NO NEW DRAINAGE PRESENT ON MIDLINE INCISION. NO NEW DRAINAGE PRESENT ON GAUZE AROUND SANDIE DRAIN SITE. PT DENEIS ADDITIONAL REQUESTS OR COMPLAINTS. CALL LIGHT ROSALIO JONES.
--- NOTE | 2023-04-20 17:20 | NUR ---
PT UP TO CHAIR ON THE PHONE AND EATING DINNER, DENIES PAIN OR NAUSEA AT THIS TIME. PT STATES THERE IS "SOMETHING WET" BY CATHETER TUBING, UPON ASSESSMENT THERE APPEARS TO BE MOISTURE ON PT'S LEG WHERE CATHETER TUBING IS PLACE. GAUZE PLACED IN AREA TO ASSESS WHERE MOISTURE IS COMING FROM. PT STATES NO FURTHER NEEDS AT THIS TIME, CALL LIGHT WITHIN REACH.
[2023-04-20 17:46] VITALS: BP 112/41
--- NOTE | 2023-04-20 17:55 | NUR ---
PT POST-OP DAY 1 FROM SIGMOID COLECTOMY. PT WALKS MULTIPLE LAPS AROUND UNIT THIS SHIFT INDEPENDENTLY USING FWW. PT TOLERATING CLEAR LIQUID DIET WELL. LAST BM 04/19/23 PRIOR TO SURGERY. BLOOD PRESSURE HAS BEEN SOFT SINCE PRIOR TO SURGERY. PT IS A CURRENT SMOKER, NICOTINE PATCH PROVIDED PER PT REQUEST. CPOX DC'D TODAY D/T PT REMAINING >95% ON RA. SURGICAL INCISION COVERED WITH ACTICOAT PER PACU NURSE, SMALL AMOUNT OF RED SHADOWING UNCHANGED THIS EVENING. SANDIE DRAIN IN PLACE, DRESSING SATURATED THIS SHIFT, REPLACED WITH GAUZE. MODERATE AMOUNT OF SEROSANGUINOUS DRAINAGE FROM DRAIN. INSERTION SITE OF DRAIN HAS MODERATE AMOUNT OF DRAINAGE THIS SHIFT, GAUZE REPLACED THROUGHOUT. PT REPORTS PAIN 0-5/10 THIS SHIFT, PRN PAIN MEDICATION GIVEN. MORALES CATHETER IN PLACE, PT REPORTS "MOISTURE" ON LEG THIS EVENING WHERE TUBING IS PLACED, GAUZE APPLIED TO CATHETER TUBING TO MONITOR WHERE LEAK IS COMING FROM. FAMILY AT THE BEDSIDE THIS SHIFT. PT USES CALL LIGHT APPROPRIATELY.
--- NOTE | 2023-04-20 18:20 | NUR ---
PT UP TO CHAIR, DECIDES TO GO FOR WALK, REQUESTS PAIN MEDICATION PRIOR TO WALK PAIN WITH ACTIVITY HAS BEEN 4-5/10. GAUZE AROUND CATHETER REMOVED, DRY. PT STATES NO FURTHER NEEDS AT THIS TIME, CALL LIGHT WITHIN REACH, AT THE BEDSIDE.
--- NOTE | 2023-04-20 18:44 | NUR ---
HALF OF GAUZE AT SANDIE DRAIN INSERTION SITE SATURATED, REPLACED. NEW GOWN GIVEN. PT STATES NO NEW NEEDS AT THIS TIME, CALL LIGHT WITHIN REACH, FAMILY AT THE BEDSIDE.
--- NOTE | 2023-04-20 19:20 | NUR ---
report recieved from krishan ARAUZ and nery ARAUZ. pt in bed resting with family in . call light in reach. no other needs at this time
[2023-04-20 21:00] VITALS: BP 129/54
--- NOTE | 2023-04-20 21:11 | NUR ---
VITAL SIGNS AND ASSESSMENT DONE. PRN PAIN MEDICATION ADMINIATERED. pt C/O 11/15 PAIN. MORALES EMPTIED. SANDIE ALVAREZ EMPTIED. CALL LIGHT WITHIN REACH. NO OTHER NEEDS AT THIS TIME. SCHEDULED MEDIACATIONS ADMINSTERED.
--- NOTE | 2023-04-20 23:30 | NUR ---
PATIENT RESTING IN BED. pt DENIES PAIN AT THIS TIME. CALL LIGHT WITHIN REACH.
--- NOTE | 2023-04-21 00:24 | NUR ---
PATIENT IN BED RESTING. pt DENIES PAIN AT THIS TIME. CALL LIGHT WITHIN REACH.
--- NOTE | 2023-04-21 02:45 | NUR ---
pt WALKED 2 LAP AROUND MED SURG. SANDIE DRAIN EMPTIED. pt BACK TO BED. CALL LIGHT IN REACH.
--- NOTE | 2023-04-21 02:50 | NUR ---
PATIENT IN BED. MORALES EMPTIED. ASSESSMENT DONE. SANDIE DRIAN EMPTIED. MIDLINE INCISION INTACT, NO CHANGE. SLIGHT LEAKING FROM SANDIE DRIAN SITE.
--- NOTE | 2023-04-21 05:03 | NUR ---
PATIENT IN BED RESTING WITH EYES CLOSED. RESP OBSERVED. RR EVEN AND UNLABORED. CALL LIGHT WITHIN REACH.
[2023-04-21 06:19] VITALS: BP 117/42
--- NOTE | 2023-04-21 06:41 | NUR ---
VITAL SIGNS DONE. MORALES EMPTIED. SANDIE DRAIN EMPTIED. CALL LIGHT IN REACH. pt DENIES PAIN.
--- NOTE | 2023-04-21 07:42 | NUR ---
REPORT RECEIVED FROM EXTRACTOR TENDER RAW STOCK RN ANH. PATIENT IS SITTING UPRIGHT IN BED AND EXPRESSED WANTING THE CATHETER OUT. RN EXPLAINED LOOKING AT THE ORDERS. PATIENT STATED NO FURTHER NEEDS AT THIS TIME. CALL LIGHT AND PERSONAL BELONGINGS ARE WITHIN REACH.
--- NOTE | 2023-04-21 08:26 | NUR ---
MED REC COMPLETE
--- NOTE | 2023-04-21 08:50 | NUR ---
PATIENT FULL ASSESSMENT COMPLETE AND DOCUMENTED IN THE CHART. PATIENT MIDLINE ABDOMINAL DRESSING WITH NO NEW DRAINAGE. PATIENT AMINATA DRAIN WITH SEROUS DRAINAGE EMPTIED. PATIENT STATED NO PAIN OR NUMBNESS AND TINGLINGING AT THIS TIME. PATIENT REQUESTING TO AMBULATE IN THE HALLWAY. PATIENT MORALES CATHETER REMOVED PER THE ORDER. PATIENT SPOUSE IS AT THE BEDSIDE. PATIENT FULL ASSESSMENT UNREMARKABLE. PATIENT SITTING UPRIGHT IN BED WITH BREAKFAST TRAY AT THE BEDSIDE. PATIENT 0900 MEDICATIONS ADMINISTERED PER THE EMAR. PATIENT AND FAMILY STATED NO FURTHER NEEDS AT THIS TIME. CALL LIGHT AND PERSONAL BELONGINGS ARE WITHIN REACH.
[2023-04-21 10:25] VITALS: BP 100/81
--- NOTE | 2023-04-21 10:42 | NUR ---
ADMIN TYLENOL 1000MG PO FOR REPORTS OF 4/10 ABDOMINAL PAIN.
--- NOTE | 2023-04-21 10:53 | NUR ---
MS GUILLEN. 15 MINUTES. PT STOPPED AND VISITED WHILE WALKING IN HALLWAY. PT AND FAMILY EXPRESSED SITUATIONALLY APPROPRIATE RESPONSES. PROVIDED HOSPITALITY. LISTENED EMPATHETICALLY. PROVIDED SILENT PRAYER.
--- NOTE | 2023-04-21 11:00 | NUR ---
PATIENT AMBULATING [place] WITH FAMILY.
--- NOTE | 2023-04-21 11:10 | NUR ---
VITALS CHARTED AND I&OS CHARTED, ROOM TIDIED. FAMILY IN ROOM. PATIENT C/O PAIN, RN NOTIFIED.
--- NOTE | 2023-04-21 11:50 | NUR ---
Patient up to void, 200 clear yellow urine noted.
--- NOTE | 2023-04-21 12:41 | NUR ---
PATIENT SITTING AT THE EDGE OF BED AND DRINKING SOME OF THEIR LUNCH. PATIENT STATED NOT HAVING GAS OR A BOWEL MOVEMENT YET. THE PATIENT ABLE TO VOID SO RN EMPTIED THE HAT. PATIENT EXPRESSED THEY JUST KEEP TRYING TO WALK TO HOPEFULLY HAVE A BOWEL MOVEMENT. PATIENT STATED NO FURTHER NEEDS AT THIS TIME. CALL LIGHT AND PERSONAL BELONGINGS ARE WITHIN REACH.
[2023-04-21 14:21] VITALS: BP 115/48
--- NOTE | 2023-04-21 14:32 | NUR ---
PATIENT GIVEN PRN MOTRIN PER THE EMAR. PATIENT STATED PAIN AT 3/10. PATIENT INPUT AND OUTPUT DOCUMENTED IN THE CHART. NO NEW DRAINAGE ON THE ABDOMINAL DRESSING. PATIENT SPOUSE IS AT THE BEDSIDE. PATIENT AND FAMILY STATED NO FURTHER NEEDS AT THIS TIME. CALL LIGHT AND PERSONAL BELONGINGS ARE WITHIN REACH.
--- NOTE | 2023-04-21 15:59 | NUR ---
PATIENT AMBULATING IN THE [place] INDEPENDENTLY. PATIENT STATING NO NEEDS AT THIS TIME.
--- NOTE | 2023-04-21 16:57 | NUR ---
PATIENT SITTING UPRIGHT IN THE RECLINER. PATIENT SPOUSE AND FAMILY ARE AT THE BEDSIDE. PATIENT STATED NO NEEDS AT THIS TIME. CALL LIGHT AND PERSONAL BELONGINGS ARE WITHIN REACH.
[2023-04-21 17:39] VITALS: BP 116/45
--- NOTE | 2023-04-21 19:20 | NUR ---
REPORT RECIEVED FROM WYATT ARAUZ. BOARD UPDATED. pt IN BED, FAMILY IN RM. CALL LIGHT IN REACH.
[2023-04-21 20:38] VITALS: BP 122/49
--- NOTE | 2023-04-21 20:50 | NUR ---
ASSESSMENT AND VITAL SIGNS DONE. MIDLINE INCISION COVERED WITH ACTECOTE. SCANT AMOUNT OF SHADOWING, NOTHING NEW. SANDIE DRAIN EMPTIED. SLIGHT LEAKING FROM AROUND THE DRAIN. DRESSING CHANGED. pt WALKED 3 LAPS AROUND MED/SURG. pt BACK TO BED. CALL LIGHT WITHIN REACH.
--- NOTE | 2023-04-21 23:42 | NUR ---
PATIENT IN BED RESITNG. pt DENIES PAIN AT THIS TIME. CALL LIGHT IN REACH. NO OTHER NEEDS AT THIS TIME.
--- NOTE | 2023-04-22 01:52 | NUR ---
pt UP TO BR. INDEPENDENT IN RM. CALL LIGHT IN REACH.
--- NOTE | 2023-04-22 04:01 | NUR ---
RESP OBSERVED. RR EVEN AND UNLABORED.
[2023-04-22 04:52] VITALS: BP 97/60
[2023-04-22 04:57] VITALS: BP 126/51
[2023-04-22 05:33] LABS: BASOPHILS 0.5 % (0-2); EOSINOPHILS 1.1 % (0-6); HEMATOCRIT 37.3 % (35.0-50.0); HEMOGLOBIN 12.2 g/dL (12.0-18.0); MCHC 32.6 g/dl (30-36); MCV 82.7 fl (81-99); MONOCYTES 6.5 % (0-12); NEUTROPHILS 75.9 % (39-80); PLATELET COUNT 260 K/uL (140-440); RDW 14.9 (10.5-15.0)
[2023-04-22 05:48] LABS: ANION GAP 12.3 (7-21); BUN/CREATININE RATIO 6.45 (6.0-28.6); CALCIUM 8.7 mg/dL (8.5-10.1); CREATININE, SERUM 0.62 mg/dL (0.55-1.02); MAGNESIUM 1.8 mg/dL (1.8-2.4); POTASSIUM 3.3 mmol/L (3.5-5.1)
--- NOTE | 2023-04-22 08:50 | NUR ---
Patient up walking in halls with her , no distress noted. Patient reports she is feeling well this morning, denies nausea.
[2023-04-22 09:10] VITALS: BP 117/43
--- NOTE | 2023-04-22 09:13 | NUR ---
Tylenol 1000mg po admin at this time. Patient is passing flatus and had a couple reported soft bowel movements. Patient denies nausea. Pt up ambulating frequently. remains at bedside. No current needs.
--- NOTE | 2023-04-22 13:03 | NUR ---
Ibuprofen 600mg po admin at this time for reports of 2/10 abdominal pain. Patient recently up to void, clear yellow urine noted in toilet. Patient denies nausea. LLQ nikko drain intact/patent, serous drainage noted, bulb to suction. Patient up ambulating frequently. Patient reports she has no needs at this time. Pt is tolerating full liquids well.
[2023-04-22 13:27] VITALS: BP 104/41
[2023-04-22] MEDS ORDERED: NICOTINE1 EAC2 TD (16:36)
[2023-04-22] MEDS ORDERED: IBUPROFEN600 MG PO (16:37)
[2023-04-22] MEDS ORDERED: ACETAMINOPHEN500 MG PO (16:37)
--- NOTE | 2023-04-23 14:31 | DS ---
[facility] [address], [place] [address] Signed ADMISSION DATE: 04/19/2023 DISCHARGE DATE: 04/22/2023 REASON FOR ADMISSION: Mid rectal cancer. HISTORY OF PRESENT ILLNESS: This 67-year-old white woman is a patient of COURT Chang. She was seen by me for colonoscopy for screening on March 21, 2023. She was noted to have a neoplasm measured regionally at 18 cm consistent with malignancy. Biopsy confirmed this. A CT scan was performed showing a rectosigmoid neoplasm. Her liver was negative for metastatic disease. A CEA level was obtained preoperatively, which was less than 4. She is admitted at this time to undergo resection of the neoplasm with primary anastomosis. PERTINENT PHYSICAL EXAMINATION: GENERAL: Showed a relatively thin white woman, who appeared to be in no distress. CHEST: Clear. HEART: Regular without murmur. ABDOMEN: Soft. There is no palpable mass. She had no ascites. EXTREMITIES: Showed no clubbing, cyanosis, or edema. HOSPITAL COURSE: On April 19, 2023, she underwent low anterior resection with side to end colorectal anastomosis. The lesion was lower than I had anticipated at the mid rectum. There was no sign of metastatic disease of the peritoneum or liver. Wide resection of the rectal mesentery and clarissa rectal fat was accomplished. A drain was placed. Her postoperative course included opiate free pain management both intra and post op. TAP blocks were used to assist in postoperative analgesia. She was given a clear liquid diet at the evening of surgery and maintained the following day with clear liquids until bowel function returned. She was advanced to a full liquid diet and ultimately to a regular diet. The drain that was placed in the pelvis was removed, it showed only serous fluid. She will be discharged home with a regular diet instruction. She should lift no more than 20 pounds for the next four weeks. She should walk on a daily basis. Mepilex dressing will be removed. Steri-Strips should remain in place. DISCHARGE DIAGNOSES: 1. 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 2. Tobacco use. Currently on smoking cessation plan with nicotine patch 21 mg. 3. History of total abdominal hysterectomy and bilateral salpingo-oophorectomy for benign disease. DISCHARGE MEDICATIONS: Include: 1. Nicotine patch 24 mg topically daily #30, refill two. 2. Ibuprofen 600 mg p.o. q.6 hours as needed for pain #60, refill one. 3. Tylenol 1000 mg p.o. q.6 hours as needed for pain #60, refill zero. 4. She will continue her usual medications of atorvastatin, Lipitor 20 mg p.o. daily. 5. Vitamin B complex including vitamin C 1 cap p.o. daily. 6. Vitamin D3 50 mcg p.o. daily. Samira Rice MD JM/MODL /[id number] cc: Ntahaly Calderón PA-C Copies: NATHALY CALDERÓN PA-C ~ Electronically Signed By: SAMIRA RICE MD 04/23/23 1431 PATIENT NAME: TONA SHELBY DISCHARGE SUMMARY DATE OF : 57 REPORT #: [id number] PHYSICIAN: SAMIRA RICE MD PCP: NATHALY CALDERÓN PA-C REPORT IS CONFIDENTIAL AND NOT TO BE RELEASED WITHOUT AUTHORIZATION
--- NOTE | 2023-04-25 15:29 | PATH ---
[facility] [address] [facility] [place], [place] [address] Signed SPECIMEN(S): A SIGMOID COLON AND RECTUM SPECIMEN(S): B RECTAL STUMP SPECIMEN(S): C LIVER SPECIMEN SOURCE: A. SIGMOID COLON AND RECTUM B. RECTAL STUMP C. LIVER CLINICAL HISTORY: Rectosigmoid CA, left lateral segment liver nodule FINAL PATHOLOGIC DIAGNOSIS: A. Colon, sigmoid and rectum, segmental resection: - Invasive adenocarcinoma, see synoptic report B. Rectal stump: - Colonic mucosa with no significant pathologic changes C. Liver, left lateral segment, biopsy: - Liver parenchyma with no significant pathologic changes; negative for metastatic carcinoma COLON AND RECTUM: Resection, Including Transanal Disk Excision of Rectal Neoplasms Applies To: A-C SPECIMEN Procedure: Rectosigmoidectomy Macroscopic Evaluation of Mesorectum: Complete TUMOR Tumor Site: Rectosigmoid Histologic Type: Adenocarcinoma Histologic Grade: G2, moderately differentiated Tumor Size: Greatest dimension (Centimeters) - 9.4 cm Tumor Extent: Invades into muscularis propria Macroscopic Tumor Perforation: Not identified Lymphovascular Invasion: Not identified Perineural Invasion: Not identified Tumor Pound Score: Intermediate (5-9) Treatment Effect: No known presurgical therapy MARGINS Margin Status for Invasive Carcinoma: All margins negative for invasive carcinoma PATIENT NAME: TONA SHELBY PATHOLOGY DATE OF : 57 REPORT #: [id number] PHYSICIAN: DONNIE PATHOLOGY PCP: AMY CHAN PA-C REPORT IS CONFIDENTIAL AND NOT TO BE RELEASED WITHOUT AUTHORIZATION [facility] [address] [place], [place] [address] Signed Closest Margin(s) to Invasive Carcinoma: Distal - 2.1 Distance from Invasive Carcinoma to Radial (Circumferential) Margin: 4.0 cm Margin Status for Non-Invasive Tumor: All margins negative for high-grade dysplasia / intramucosal carcinoma and low-grade dysplasia REGIONAL LYMPH NODES Regional Lymph Node Status: All regional lymph nodes negative for tumor Number of Lymph Nodes Examined: 67 Tumor Deposits: Not identified PATHOLOGIC STAGE CLASSIFICATION (pTNM, AJCC 8th Edition) Reporting of pT, pN, and (when applicable) pM categories is based on information available to the pathologist at the time the report is issued. As per the AJCC (Chapter 1, 8th Ed.) it is the managing physician's responsibility to establish the final pathologic stage based upon all pertinent information, including but potentially not limited to this pathology report. pT Category: pT2 pN Category: pN0 COMMENT: Testing for microsatellite instability by immunohistochemistry was performed on the prior biopsy specimen ([id number]) and reported as normal pattern of expression. As part of [facility] Quality Improvement Program, this case was reviewed by another member of our pathology staff. [facility] MICROSCOPIC EXAMINATION: Histologic sections of all submitted blocks are examined by light microscopy. These findings, together with the gross examination, support the pathologic diagnosis. GROSS DESCRIPTION: A. The specimen, labeled and designated "Tano Shelby" and designated on the requisition "sigmoid colon, rectum," is received in formalin and consists of a previously opened segment of sigmoid colon and proximal rectum (42 cm in length and ranging in circumference from 4.5 to 10.0 cm). The specimen was resected above the anterior peritoneal reflection. The posterior mesorectal envelope is yellow-hawthorne fatty and smooth. The serosa is hawthorne-pink and smooth. There is a hawthorne to red-brown nearly circumferential mass (9.4 x 5.0 x 2.5 cm) within the distal sigmoid/proximal rectum that has heaped borders and is located 2.1 cm from the distal rectal margin, 4.0 cm from the PATIENT NAME: TONA SHELBY PATHOLOGY DATE OF : 57 REPORT #: [id number] PHYSICIAN: DONNIE AVENDANO PCP: AMY CHAN PA-C REPORT IS CONFIDENTIAL AND NOT TO BE RELEASED WITHOUT AUTHORIZATION [facility] [address] [place], [place] [address] Signed mesorectal margin posteriorly, 8.0 cm from the mesenteric root margin, and 33 cm from the proximal bowel margin. The proximal sigmoid and distal rectal margins are inked green. The mesorectum and mesenteric root margins are inked black and the serosa adjacent to the mass is inked blue. The mass is serially sectioned reveal a white-hawthorne to brown-hawthorne cut surface and involves the mucosa, submucosa and muscularis propria with extension into the fat. The mass does not grossly involve the serosa. The remaining mucosa is hawthorne-pink and slightly attenuated with no other masses or lesions identified. The fat is palpated and 69 possible lymph nodes are identified (0.3-0.9 cm in greatest dimension). All possible lymph nodes are submitted entirely. Technical Editor sections are submitted. Cassette Summary: (A1) proximal bowel margin, shaved (A2) mesenteric root margin, shaved (A3-A4) mass to fat (A5-A7) mass to serosa (A8) mass to proximal uninvolved (A9-A10) mass to distal margin (A11) closest mesorectal margin (A12) five possible lymph nodes, intact (A13) six possible lymph nodes, intact (A14) six possible lymph nodes, intact (A15) six possible lymph nodes, intact (A16) five possible lymph nodes, intact (A17) five possible lymph nodes, intact (A18) five possible lymph nodes, intact (A19) four possible lymph nodes, intact (A20) four possible lymph nodes, intact (A21) five possible lymph nodes, intact (A22) two possible lymph nodes, one inked blue and serially sectioned, one bisected (A23) two possible lymph nodes, one bisected, one inked blue and trisected. (A24) two possible lymph nodes, one inked blue and bisected, one trisected (A25) three possible lymph nodes, intact (A26) three possible lymph nodes, intact (A27) two possible lymph nodes, one inked blue, both bisected (A28) two possible lymph nodes, one inked blue, both bisected (A29) two possible lymph nodes, one inked blue, both bisected PATIENT NAME: TONA SHELBY PATHOLOGY DATE OF : 57 REPORT #: [id number] PHYSICIAN: DONNIE AVENDANO PCP: AMY CHAN PA-C REPORT IS CONFIDENTIAL AND NOT TO BE RELEASED WITHOUT AUTHORIZATION [address] [address] Signed B. The specimen, labeled and designated "Tip, B" and designated on the requisition "rectal stump," is received in formalin and consists of in unoriented circular portion of bowel (4.0 x 3.0 x 1.5 cm) with pink-hawthorne mucosa. The tissue is sectioned to reveal hawthorne-pink soft cut surfaces. No masses or lesions are identified. The tissue is submitted entirely in cassette B1-B3. C. The specimen, labeled and designated "Tip, C" and designated on the requisition "liver biopsy, left lateral segment nodule," is received in formalin and consists of two cores of red-brown soft tissue (0.5 and 0.6 cm in length by 0.1 cm in diameter). The tissue is inked black and submitted entirely in cassette C1-C2. AC (under the direct supervision of a pathologist) The Gross Description was prepared using a voice recognition system. The report was reviewed for accuracy; however, sound-alike word errors, addition and/or deletions may occur. If there is any question about this report, please contact Client Services. ADDITIONAL NOTES: Immunohistochemical and/or in situ hybridization studies if performed in this case included appropriate positive controls that reacted as expected. This test was developed and its performance characteristics determined by [facility]. It has not been cleared or approved by the U.S. Food and Drug Administration. The FDA has determined that such clearance or approval is not necessary. This test is used for clinical purposes. It should not be regarded as investigational or for research. [facility] is certified under the Clinical Laboratory Improvement Amendments of 1988 (CLIA) as qualified to perform high complexity clinical laboratory testing. PERFORMING LABORATORY: Technical component was performed by [facility], [address] [place] [id number] (CLIA# [id number]). Professional interpretation was performed by [facility] [address] [place] [phone] [id number] Diagnostician: Amor Arzola MD Pathologist Electronically Signed 04/25/2023 PATIENT NAME: TONA SHELBY PATHOLOGY DATE OF : 57 REPORT #: [id number] PHYSICIAN: DONNIE PATHOLOGY PCP: AMY CHAN PA-C REPORT IS CONFIDENTIAL AND NOT TO BE RELEASED WITHOUT AUTHORIZATION [address] [address] Signed Copies: ~ PATIENT NAME: TONA SHELBY PATHOLOGY DATE OF : 57 REPORT #: [id number] PHYSICIAN: DONNIE PATHOLOGY PCP: AMY CHAN PA-C REPORT IS CONFIDENTIAL AND NOT TO BE RELEASED WITHOUT AUTHORIZATION
== END 2023-04-22 18:30 | disposition home or self-care (01) | DRG 330 ==
LOC: MS 04-19 07:52 → DSVR 04-19 07:52 → MS 04-19 09:00
PROVIDERS: ADMIT Surgery; ATTEND Surgery
PROC: 0DTN0ZZ Resection of Sigmoid Colon, Open Approach (ICD-10-PCS; 2023-04-19)
PROC: 0FB20ZX Excision of Left Lobe Liver, Open Approach, Diagnostic (ICD-10-PCS; 2023-04-19)
PROC: 0DBP0ZZ Excision of Rectum, Open Approach (ICD-10-PCS; principal; 2023-04-19 10:00)
DX: C19 Malignant neoplasm of rectosigmoid junction (principal); Q43.8 Other specified congenital malformations of intestine; K76.89 Other specified diseases of liver; Z90.710 Acquired absence of both cervix and uterus; Z90.79 Acquired absence of other genital organ(s); Z90.722 Acquired absence of ovaries, bilateral; Z72.0 Tobacco use; Z90.49 Acquired absence of other specified parts of digestive tract; Z88.2 Allergy status to sulfonamides
CPT/HCPCS: 00840; 36415; 76942; 80048; 80053; 83735; 85025; 99406; A9270; J0131; J0690; J0694; J1100; J1644; J1885; J2001; J2371; J2405; J2704; J2795; J3475; J3490; J7121

== ENCOUNTER 2023-04-23 15:35 | Inpatient (IN) | payer OTHER ==
[~2023-04-23] VITALS: Ht 167.6 cm; Wt 65.3 kg
--- NOTE | ~2023-04-23 | OR ---
[facility] [address] [place] [address] [place], [place] [address] Draft DATE OF OPERATION: 05/03/2023 SURGEON: Samira Rice MD PREOPERATIVE DIAGNOSIS: Left buttock subcutaneous abscess. POSTOPERATIVE DIAGNOSIS: Left buttock subcutaneous abscess. PROCEDURE: Incision and drainage of subcutaneous abscess, left buttock. ANESTHESIA: 1% lidocaine. INDICATION: This is a 67-year-old white woman, who has had prolonged hospitalization following low anterior resection and postoperative early small-bowel obstruction or ileus which has now resolved entirely. Anticipating discharge today, she advises me of a small "boil" of the left buttock. Examination shows a small abscess that is not related to a bedsore etiology. I have recommended incision and drainage at the bedside as it likely will worsen overtime without some form of drainage. The risk of bleeding, infection, and so forth were reviewed with her, she understands and wished to proceed. FINDINGS: Small amount of purulent material was noted. Incision includes excision of a small portion of skin to allow for persistent drainage. There were no complications. DESCRIPTION OF PROCEDURE: In the lateral decubitus position right side down, the left buttock was taped anteriorly exposing the area of the mid posterior left buttock well. The area was prepared with a Betadine based solution. A 1% lidocaine was injected locally. Incision with an 11 blade was undertaken allowing for the depth of the incision to extend at least an inch or more. Egress of relatively thin purulent material was noted. There was no sign of well-formed abscess or loculations proper. An additional segment of skin was excised to allow for ongoing drainage. Hemostasis was assured and plain gauze was applied with tape dressing. She tolerated the procedure well. PATIENT NAME: TONA SHELBY OPERATIVE REPORT DATE OF : 57 REPORT #: [id number] PHYSICIAN: SAMIRA RICE MD PCP: AMY CHAN PA-C REPORT IS CONFIDENTIAL AND NOT TO BE RELEASED WITHOUT AUTHORIZATION [address] [address] Draft MD CHUCK Chacon/TABATHA /[id number] Copies: ~ PATIENT NAME: TONA SHELBY OPERATIVE REPORT DATE OF : 57 REPORT #: [id number] PHYSICIAN: SAMIRA RICE MD PCP: AMY CHAN PA-C REPORT IS CONFIDENTIAL AND NOT TO BE RELEASED WITHOUT AUTHORIZATION
--- NOTE | ~2023-04-23 | DS ---
[facility] [address] [place], [place] [address] Draft ADMISSION DATE: 04/23/2023 DISCHARGE DATE: 05/03/2023 REASON FOR ADMISSION: This 67-year-old white woman was found to have a mid rectal cancer, underwent low anterior resection with side-to-end coloproctostomy on April 19, 2023. She was discharged on April 22, 2023, following a non-opiate postoperative pain control protocol and having tolerated oral intake including solid food and having bowel movements and doing well. Upon her return home to [facility], she had bloating and fullness following a meal at home. She returned to the emergency room, where she was thoroughly evaluated by Dr. Ashford and a CT scan was performed, which showed diffusely dilated small bowel throughout the abdomen consistent with possible early small-bowel obstruction versus postoperative ileus. She was admitted for further evaluation and care. PERTINENT PHYSICAL EXAMINATION: GENERAL: Showed a thin white woman accompanied by her , but did not appear systemically toxic. VITAL SIGNS: Temperature is 97.8, pulse 91, blood pressure 126/59, and respiratory rate is 16. ABDOMEN: Not particularly distended and was completely nontender. Nasogastric tube placed showed bilious green fluid draining from it. Her. LABORATORY STUDIES: Showed white count 10.4, hematocrit 38.2. Potassium 3.7, creatinine 0.67. Liver enzymes normal. HOSPITAL COURSE: She was maintained with nasogastric tube drainage. She did have bowel sounds, but no flatus or bowel movement. She did not have much abdominal pain particularly. Nasogastric tube was uncomfortable and managed with Cepacol in the usual way. Urinalysis was found to be normal. Subsequent CBC showed white count of 4.8 and hematocrit of 31.4. Her electrolytes were maintained as normal. She was noted to have low blood sugar, but not particularly symptomatic, but did require supplemental glucose be given. IV fluids were changed to D5 LR rather than lactated Ringer's alone on that basis. She maintained free of abdominal pain particularly. A CT scan which GI contrast was performed as the possibility of bowel obstruction, though unlikely was a consideration. The CT findings showed findings more consistent with ileus than small bowel obstruction proper. She did have fluid in the pelvis and some intraabdominal air that was likely residual from her operation itself. Within two days, she did have small amount of flatus. She was not treated with antibiotics. A retrograde study PATIENT NAME: TONA SHELBY DISCHARGE SUMMARY DATE OF : 57 REPORT #: [id number] PHYSICIAN: SAMIRA RICE MD PCP: AMY CHAN PA-C REPORT IS CONFIDENTIAL AND NOT TO BE RELEASED WITHOUT AUTHORIZATION [facility] [address] [place], [place] [address] Draft (Gastrografin enema) affirmed that the low coloproctostomy was intact without sign of leakage nor likely clarissa-rectal fluid collection. This was affirmed by pelvic CT with retrograde contrast as well. Her abdominal appearance appeared to be improved and nasogastric tube was able to be removed. Her pathology report returned showing complete resection of adenocarcinoma of the mid rectum and 64 lymph nodes, all negative for metastatic disease. Limited liquids were administered. Electrolytes were optimized including potassium and magnesium. Continued OAM, ambulation was maintained to stimulate bowel function. She was able to resume a full liquid diet, and ultimately a low-fiber diet which she tolerated well. On the day of discharge, she was noted to have an erythematous tender "boil" of the left buttock. This did not appear to be a decubitus ulcer by any means. Incision and drainage was undertaken at the bedside under local anesthesia, which allowed for egress of small amount of purulent material. It is anticipated she will maintain sitz baths for this as well as Augmentin 500 mg p.o. b.i.d. for five days. By the time of discharge, she is ambulating well, having a considerable amount of flatus per rectum and some liquid stool. She is tolerating a low-fiber diet. DISCHARGE MEDICATIONS: 1. Augmentin 875/125 one tablet p.o. b.i.d., #10. She will resume her usual medications of atorvastatin, Lipitor 20 mg p.o. at bedtime, vitamin B12 5000 mcg daily sublingual. 2. Vitamin D3 50 mcg p.o. daily. 3. Nicotine patch 21 mg transdermal daily. 4. Motrin 600 mg p.o. q.6 hours as needed for pain. 5. Tylenol 500 mg p.o. two tabs q.6 hours as needed for abdominal pain. She will maintain a sitz bath regimen b.i.d., pending complete healing of the left buttock drainage site. She should lift no more than 20 pounds for the next four weeks. She will call Tuesday next week to set up appointment for return in 2-4 weeks. She will maintain a low-fiber diet for the next few days, advancing to regular diet as tolerated. MD CHUCK Chacon/TABATHA /[id number] cc: Jayla Jennings PATIENT NAME: TONA SHELBY DISCHARGE SUMMARY DATE OF : 57 REPORT #: [id number] PHYSICIAN: SAMIRA RICE MD PCP: AMY CHAN PA-C REPORT IS CONFIDENTIAL AND NOT TO BE RELEASED WITHOUT AUTHORIZATION [facility] [address] [place], [place] [address] Draft [facility] Copies: ~ PATIENT NAME: TONA SHELBY DISCHARGE SUMMARY DATE OF : 57 REPORT #: [id number] PHYSICIAN: SAMIRA RICE MD PCP: AMY CHAN PA-C REPORT IS CONFIDENTIAL AND NOT TO BE RELEASED WITHOUT AUTHORIZATION
[~2023-04-23 15:35] MED LIST changes: +ACETAMINOPHEN500 MG PO; +IBUPROFEN600 MG PO; +NICOTINE1 EAC2 TD; +VITAMIN D350 MC3 PO
[2023-04-23 17:46] LABS: BASOPHILS 0.2 % (0-2); EOSINOPHILS 0.8 % (0-6); HEMATOCRIT 38.2 % (35.0-50.0); HEMOGLOBIN 12.6 g/dL (12.0-18.0); MCH 27.4 (27-36); MCHC 33.1 g/dl (30-36); MCV 82.8 fl (81-99); MONOCYTES 8.3 % (0-12); NEUTROPHILS 82.7 % (39-80); PLATELET COUNT 317 K/uL (140-440); RBC 4.61 M/ul (4.3-5.7); RDW 15.2 (10.5-15.0)
[2023-04-23 17:58] LABS: ALBUMIN 3.1 g/dL (3.4-5.0); ALBUMIN/GLOBULIN RATIO 0.84 (1.1-2.4); ANION GAP 14.7 (7-21); BILIRUBIN, TOTAL 0.6 ng/dL (0.2-1.0); BUN/CREATININE RATIO 19.4 (6.0-28.6); CALCIUM 8.9 mg/dL (8.5-10.1); CREATININE, SERUM 0.67 mg/dL (0.55-1.02); MAGNESIUM 1.8 mg/dL (1.8-2.4); POTASSIUM 3.7 mmol/L (3.5-5.1); PROTEIN, TOTAL 6.8 g/dL (6.4-8.2)
[2023-04-23 19:18] LABS: BILIRUBIN, URINE NEGATIVE (negative); BLOOD/HGB, URINE NEGATIVE (Negative); KETONE, URINE SMALL (Negative); LEUK ESTERASE, URINE NEGATIVE (negative); NITRITE, URINE NEGATIVE (negative)
[2023-04-23 20:25] VITALS: BP 138/60
--- NOTE | 2023-04-23 20:59 | NUR ---
REPORT RECEIVED FROM FREIGHT SERVICE INSPECTOR. PATIENT TRANSFERRED INDEPENDTLY TO BATHROOM TO VOID. PATIENT BACK TO BED. ADMISSION ASSESSMENT COMPLETE. VS OBTAINED. NG ON LOW INTERMITTENT WALL SUCTION. SCHEDULES AND PRN MEDICATIONS ADMINISTERED, SEE JUL. IV FLUIDS INFUSING PER ORDER. PATIENT EDUCATED TO ROOM, AND CALL LIGHT. PATIENT HAS NO FURTHER NEEDS. CALL LIGHT IN REACH.
--- NOTE | 2023-04-23 23:02 | NUR ---
PATIENT RESTING IN BED ON BACK WITH EYES CLOSED. RESPIRATIONS EVEN AND UNLABORED. CALL LIGHT IN REACH.
--- NOTE | 2023-04-23 23:38 | NUR ---
PATIENT ASSISTED TO BR A SBA. PATIENT ABLE TO VOID. PATIENT IS BACK IN BEBD RESTING. PATIENTS NG TO LWIS. IV INFUSING PER ORDER. PATIENT DENIES ANY PAIN OR NAUSEA. PATIENT PROVIDED WITH WARM BLANKET. NO FURTHER NEEDS NOTED. CALL LIGHT IN REACH. ICE CHIPS FOR COMFORT
--- NOTE | 2023-04-24 00:51 | NUR ---
PATIENT IN BED RESTING ON BACK. RESPIRATIONS EVEN AND UNLABORED. CALL LIGHT IN REACH.
[2023-04-24 01:26] VITALS: BP 127/57
--- NOTE | 2023-04-24 01:28 | NUR ---
PATIENT RESTING IN BED. PATIENT UP TO BATHROOM TO VOID WITH MINIMAL SBA. VS AND I&Os OBTAINED AND RECORDED. PATIENT REPORTS 4/10 PAIN IN THROAT, PRN PAIN MEDICATION ADMINISTERED, SEE MAR. PATIENT HAS NO FURTHER NEEDS. CALL LIGHT IN REACH. FRESH ICE CHIPS PROVIDED.
--- NOTE | 2023-04-24 04:15 | NUR ---
PATIENT IN BED RESTING ON BACK WITH EYES CLOSED. RESPIRATIONS EVEN AND UNLABORED. CALL LIGHT IN REACH.
[2023-04-24 05:32] VITALS: BP 114/44
[2023-04-24 05:43] LABS: BASOPHILS 0.4 % (0-2); EOSINOPHILS 3.6 % (0-6); HEMATOCRIT 31.4 % (35.0-50.0); HEMOGLOBIN 10.5 g/dL (12.0-18.0); LYMPHOCYTES 22.9 % (24-44); MCH 27.4 (27-36); MCHC 33.5 g/dl (30-36); MCV 81.9 fl (81-99); MONOCYTES 13.3 % (0-12); NEUTROPHILS 59.8 % (39-80); PLATELET COUNT 248 K/uL (140-440); RBC 3.84 M/ul (4.3-5.7); RDW 15.1 (10.5-15.0)
--- NOTE | 2023-04-24 05:51 | NUR ---
PATIENT RESTING IN BED. VS AND I&Os OBTAINED AND RECORDED. SCHEDULED MEDICATION ADMINISTERED. PATIENT REPORTS 2/10 PAIN. PRN PAIN MEDICATION ADMINISTERED, SEE MAR. ASSESSMENT COMPLETE. BOWEL TONES ACTIVE IN ALL 4 QUADRANTS. NG TUBE ON LIWS. PATIENT UP TO BETHROOM TO VOID WITH SBA. PATIENT HAS NO FURTHER NEEDS. CALL LIGHT IN REACH.
[2023-04-24 06:07] LABS: ANION GAP 8.6 (7-21); BUN/CREATININE RATIO 20.31 (6.0-28.6); CALCIUM 8.2 mg/dL (8.5-10.1); CREATININE, SERUM 0.64 mg/dL (0.55-1.02); MAGNESIUM 1.7 mg/dL (1.8-2.4); POTASSIUM 3.6 mmol/L (3.5-5.1)
--- NOTE | 2023-04-24 06:07 | NUR ---
THIS RN AMBULATED IN THE CHRISTIE WITH PATIENT. PATIENT ABLE TO COMPLETE X3 LAPS IN THE CHRISTIE. PATIENT IS BACK IN BED RESTING. NG TO LWIS. PATIENT DENIES ANY FURTHER NEEDS. CALL LIGHT IN REACH.
--- NOTE | 2023-04-24 07:18 | NUR ---
RECIEVED BEDSIDE REPORT FROM REGLA GAO AND REGLA ENCARNACION. PT IS AWAKE AND ALERT, NGT TO LIWS. IVF AT 100ML/HR PER ORDER. PT HAS NO NEEDS AT THIS TIME.
--- NOTE | 2023-04-24 07:36 | NUR ---
PATIENT IS RESTING IN BED, NGT PATENT. NEW BAG OF LR INFUSING. PATIENT DENIES NEEDS AT THIS TIME.
[2023-04-24 09:35] VITALS: BP 107/57
--- NOTE | 2023-04-24 09:40 | NUR ---
PT HAS BEEN UP WALKING X3 LAPS. SHE REPORTS NO PAIN AT THIS TIME. MULTIPLE FAMILY MEMBERS IN ROOM.
--- NOTE | 2023-04-24 13:07 | NUR ---
PATIENT BACK FROM WALK, GOWN CHANGED, NGT FLUSHED WITH 50CC TAP WATER.
--- NOTE | 2023-04-24 13:45 | NUR ---
PT HAS BEEN UP WALKING THE HALLS MULTIPLE TIMES. SHE DENIES PAIN WHILE WALKING. MULTIPLE FAMILY MEMBERS IN THE ROOM AT ALL TIMES.
[2023-04-24 14:36] VITALS: BP 117/56
--- NOTE | 2023-04-24 16:41 | NUR ---
PT IS ADMITTED 04/23 FOR A POST-OP ILLIUS S/P BOWEL RESECTION ON 04/19. PT IS NPO, CLEAR LIQUIDS FOR COMFORT ONLY. NGT TO LIWS, WITH GOOD OUTPUT. PT HAS NOT HAD FLATUS OR BM SINCE ADMIT. PT HAD MAG REPLACEMENT. SHE HAS LR @ 100. SHE HAS WALKED ABOUT 25 LAPS THROUGHOUT THE SHIFT. SHE HAS A 20G IN LEFT AC. SHE HAS HAD FAMILY IN ROOM ALL DAY, UP TO VOID WITH LINE MANAGEMENT. DRESSINGS C/D/I. PT HAD IV TORADOL X1. GOOD OUTPUT FOR NGT. PT PAIN WELL CONTROLED. VSS.
[2023-04-24 17:32] VITALS: BP 111/48
--- NOTE | 2023-04-24 19:37 | NUR ---
REPORT RECEIVED FROM DAY SHIFT RN. PATIENT RESTING IN BED WITH AT BEDSIDE. PATIENT HAS NO FURTHER NEEDS. CALL LIGHT IN REACH.
--- NOTE | 2023-04-24 20:03 | NUR ---
PATIENT BLADDER SCANNED AND NO URINE RETENTION NOTED. PATIENT HAS DARK COLORED URINE AND HER OUTPUT IS NOTED TO BE LOW. PLACED CALL TO MD. RECEIVED NEW TELEPHONE ORDERS. VERIFIED ORDER USING THE REPEAT BACK METHOD.
[2023-04-24 20:15] VITALS: BP 110/40
--- NOTE | 2023-04-24 20:28 | NUR ---
PATIENT RESTING IN BED WTIH AT BEDSIDE. VS AND I&Os OBTAINED AND RECORDED. SCHEDULED MEDICATIONS ADMINISTRED. IV FLUSHED AND WNL. IV BOLUS INFUSNIG PER ORDER. SCDs IN PLACE. ASSESSMENT COMPLETE. BOWEL TONES ACTIVE. PATIENT HAS NO FURTHER NEEDS. CALL LIGHT IN REACH. PATIENT DENIES PAIN OR NAUSEA. PATIENT REPORTS PASSING GAS.
--- NOTE | 2023-04-24 22:50 | NUR ---
CALL LIGHT ANSWERED. PATIENT RESTING IN BED ON BACK. IV PUMP BEEPING. PATIENT HAS NO FURTHER NEEDS. CALL LIGHT IN REACH.
--- NOTE | 2023-04-25 00:39 | NUR ---
PATIENT IN BED RESTING IN BACK. PATIENT UP TO BATHROOM TO VOID WITH MINIMAL SBA. PATIENT BACK TO BED. PATIENT REPORTS 4/10 THROAT PAIN. PRN PAIN MEDICATIONS ADMINISTERED, SEE MAR. SCDs IN PLACE. PATIENT HAS NO FURTHER NEEDS. CALL LIGHT IN REACH.
--- NOTE | 2023-04-25 02:08 | NUR ---
PATIENT IN BED RESTING ON BACK WITH EYES CLOSED. RESPIRATIONS EVEN AND UNLABORED. CALL LIGHT IN REACH.
--- NOTE | 2023-04-25 04:08 | NUR ---
PATIENT UP TO BATHROOM WITH MINIMAL SBA. PATIENT BACK TO BED. SCDs IN PLACE. NEW BAG IV FLUID INFUSING PER ORDER. ASSESSMENT COMPLETE. BOWEL TONES ACTIVE IN ALL 4 QUADRANTS. NO PAIN IN THE ABD AT THIS TIME. CALL LIGHT IN REACH.
--- NOTE | 2023-04-25 04:11 | NUR ---
PATIENTS NG HAS NOTED TO HAVE TO HAVE SLID OUT OF PATIENTS NOSE. PATIENTS ADVANCED BACK TO BLACK JIGNESH. NG ADVANCED APPROX 5CM. PATIENT TOLEARATED ACTIVITY WELL. PATIENT UIS IN BED RESTING. NG TO LWIS. IV INFUSING PER ORDER. NO FURTHER NEEDS NOTED. CALL LIGHT IN REACH.
--- NOTE | 2023-04-25 04:13 | NUR ---
PATIENT IN BED RESTING ON BACK WATCHING TV. RESPIRATIONS EVEN AND UNLABORED. CALL LIGHT IN REACH.
[2023-04-25 05:53] VITALS: BP 136/53
--- NOTE | 2023-04-25 05:55 | NUR ---
PATIENT RESTING IN BED. VS AND I&Os OBTAINED AND RECORDED. PATIENT HAS NO FURTHER NEEDS. CALL LIGHT IN REACH.
[2023-04-25 06:08] LABS: ANION GAP 11.4 (7-21); BUN/CREATININE RATIO 30.9 (6.0-28.6); CALCIUM 7.9 mg/dL (8.5-10.1); CREATININE, SERUM 0.55 mg/dL (0.55-1.02); MAGNESIUM 1.9 mg/dL (1.8-2.4); POTASSIUM 3.4 mmol/L (3.5-5.1)
--- NOTE | 2023-04-25 06:19 | NUR ---
ACCOMPANIED PATIENT WALK AROUND THE HALLWAY X4 LAPS. PATIENT IS BACK IN THE ROOM UP IN THE CHAIR. NGT IN PLACED. CALL LIGHT AND SIDE TABLE WITHIN REACH. WARM BLANKET PROVIDED.
--- NOTE | 2023-04-25 06:48 | NUR ---
PATIENTS LABS NOTED A BS OF 69. PATIENT DENIES ANY S/SX OF HYPOGLYCEMIA. BS CHECKED AND VERIFIED TO BE 58. PLACED CALL TO MD. NEW TELEPHONE ORDER RECEIVED. VERIFIED ORDER USING REPEAT BACK METHOD.
--- NOTE | 2023-04-25 07:33 | NUR ---
REPORT RECEIVED FROM REGLA BUCHANAN. PT UP TO CHAIR. PT REQUESTING ICE CHIPS FOR THROAT, GIVEN. PT STATES NO NEEDS AT THIS TIME, CALL LIGHT WITHIN REACH.
--- NOTE | 2023-04-25 07:58 | NUR ---
REPORT RECEIVED FROM REGLA MARTINEZ. PT UP TO CHAIR, TEARFUL AND WORRIED ABOUT HER PROGNOSIS. THERAPUTIC COMMUNICATION PERFORMED. PT UDPATED ON PLAN OF CARE AND ENCORUAGEMENT PROVIDED. BLOOD SUGAR STABLE. PT DENEIS PAIN OR NAUSEA AT THIS TIME BUT FOR SORE THROAT. PT DECLIENS CEPACOL, REPORTS ICE CHIPS HELPS. NO ADDITIONAL REQUESTS OR COMPLAINTS. JOHN RN ASSUMING CARE OF PT WITH ASSISTANCE FROM THIS RN. CALL LIGHT WITHIN REACH.
--- NOTE | 2023-04-25 08:18 | NUR ---
MED REC COMPLETE
--- NOTE | 2023-04-25 08:29 | NUR ---
This PROFESSOR CRIMINAL JUSTICE assumed PROFESSOR CRIMINAL JUSTICE cares for this PT. PT is up in the chair. Denies needing any assistance at this time.
--- NOTE | 2023-04-25 09:01 | NUR ---
PT UP TO CHAIR VISITING WITH FAMILY. PT STATES PAIN IS 3/10 IN LOWER ABDOMINAL AREA AND STATES THAT "THE ONLY PAIN I HAVE HAD HAS BEEN IN THAT AREA", EDUCATION PROVIDED ON PAIN FROM SURGERY, PT VERBALIZES UNDERSTANDING. PT REQUESTS PAIN MEDICATION, GIVEN. IMAGING TO BEDSIDE. SCDs NOT IN PLACE D/T PT WALKING FREQUENTLY. PT UP FOR WALK WITH FAMILY AROUND UNIT. PT CONTINUES TO HAVE LOW URINE OUTPUT. PT CONTINUES TO HAVE ABDOMINAL TENDERNESS UPON PALPATION, HYPOACTIVE BOWEL TONES. NO BM SINCE PRIOR TO ADMISSION, PT DENIES NAUSEA AT THIS TIME. NG TUBE IN PLACE, CAPPED FOR WALK, INTERMITTENT SUCTION IN USE WHEN CONNECTED. LLQ PUNTURE SITE COVERED WITH ALLEVYN, C/D/I. MIDLINE INCISION HAS SMALL AMOUNT OF DRAINAGE PRESENT ON STERI STRIP, RED AND SEROSANGUINOUS. EDGES OF MIDLINE INCISION WELL APPROXIMATED, NO SWELLING, REDNESS, OR HEAT. PT CONTINUES TO BE ON WALK, STATES NO FURTHER NEEDS AT THIS TIME.
--- NOTE | 2023-04-25 09:30 | NUR ---
PATIENT UP WALKING IN HALLWAY WITH AND DAUGHTERS. PATIENT STATES SHE IS FEELING OK. CM ASSESSMENT COMPLETED FROM PREVIOUS ADMISSION. WILL CHECK IN WITH PATIENT LATER TODAY.
[2023-04-25 09:46] VITALS: BP 112/44
--- NOTE | 2023-04-25 10:15 | NUR ---
THIS RN TO ROOM TO CHECK ON PT. PT REPORTS SHE WAS UP TO AMBULATE X6 LAPS IN HALLWAY. PT REPORTS ABDOMINAL PAIN HAS RESOLVED, SORE THROAT REMAINS, CEPACOLE CARLOSE, PROVIDED. PT DENIES ADDITIONAL REQUESTS OR COMPLAINTS. FAMILY AT BEDSIDE. CALL LIGHT WITHIN REACH. PT REPORTS SHE WAS ABLE TO URINATE AND "THERE WAS NO BLOOD WHEN I WIPED."
--- NOTE | 2023-04-25 10:40 | NUR ---
PT STATES SHE WOULD LIKE TO WALK AROUND UNIT, NG TUBE CLOSED FOR WALK. PT STATES NO FURTHER NEEDS AT THIS TIME.
--- NOTE | 2023-04-25 11:17 | NUR ---
THIS RN TO ROOM TO RECHECK BLOOD SUGAR. PT UP TO AMBULATE IN CHRISTIE X 6 LAPS. SUGAR CHECKED, 53 AT THIS TIME. PT ENCORUAGED TO GO BACK TO ROOM AND REST. DR. RICE CALLED AND UPDATED. ORDERS GIVEN TO CHANE IV FLUIDS AND RECHECK BLOOD SUGAR IN 1 HOUR. IF SUGAR IS STILL BELOW 70 GIVE ANOTHER AMP OF D50. ORDERS ENTERED REPEAT BACK PERFORMED. PT AND FAMILY UPDATED. PT BACK TO ROOM AND RESTING IN BED. HEAD OF BED AT 27 DEGREES. PT DENIES PAIN AND NAUSEA. NG TUBE TO LOW INTERMITTANT SUCTION. PTS PRIMARY RN UPDATED. NO ADDITIONAL NEEDS AT THIS TIME. CALL LIGHT WITHIN REACH. BED RAILS UP.
--- NOTE | 2023-04-25 12:07 | NUR ---
PT LYING IN BED AWAKE AND ORIENTED. BLOOD GLUCOSE READING DONE PER MD ORDER, BG <70, PT STATES SHE HAS A HEADACHE AND REPORTS FEELINGS OF HUNGER, DENIES N/V, HOT FLASHES, CLAMMYNESS, TREMORS, OR MOOD SWINGS AT THIS TIME. NEW ORDERS ENTERED. PT STATES NO FURTHER NEEDS AT THIS TIME, CALL LIGHT WITHIN REACH, BED RAILS UP.
[2023-04-25 13:08] VITALS: BP 121/50
--- NOTE | 2023-04-25 13:45 | NUR ---
PT CALL LIGHT ON. PT REPORTS SHE IS FINISHED AMBULATION. PT REPORTS SHE AMBULATED 4 LAPS WITH STAND BY ASSIST. NG TUBE RETURNED TO LOW INTERMITTANT SUCTION. PT REQUESTS A CEPACOLE LOZANGE FOR SORE THROAT, PROVIDED. NO ADDITIONAL REQUESTS OR COMPLAINTS. PT RESTING IN BED, VISITING WITH FAMILY. CALL LIGHT WITHIN REACH. BED RAILS UP.
--- NOTE | 2023-04-25 14:30 | NUR ---
PT STATES PAIN IS 3/10 IN THROAT, DENIES NEED FOR PAIN MEDICATION AT THIS TIME. ABDOMEN CONTINUES TO BE MILDLY DISTENDED, TENDER TO PALPATION. BOWEL TONES HYPOACTIVE. PT DENIES NAUSEA. NG TUBE AIR LOCKED AFTER GIVEN MEDICATION PRIOR TO IMAGING EXPECTED THIS AFTERNOON. DRAINAGE FROM NG TUBE CONTINUES TO BE GREEN. PT REMAINS NPO BUT FOR CHIPS AND SIPS. NO CHANGE IN MIDLINE INCISION OR PUNCTURE WOUND SITES SINCE MORNING ASSESSMENT, NO NEW DRAINAGE. PT CONTINUES TO BE VOIDING NON-QUANTITY SUFFICIENT. PT STATES NO NEEDS AT THIS TIME, AT THE BEDSIDE, CALL LIGHT WITHIN REACH, BED RAILS UP.
--- NOTE | 2023-04-25 15:29 | NUR ---
GASTROGRAFIN GIVEN PER NG TUBE. 500 ML BOLUS INFUSING AT THIS TIME. PATIENT IS RESTING IN BED AND TOLERATING HAVING NGT PLUGGED.
--- NOTE | 2023-04-25 15:49 | NUR ---
THIS RN TO ROOM TO CHECK ON PT. PT RESTING IN BED, SEMIFOWLER. PT DENIES PAIN AND NAUSEA BUT FOR SORE THROAT. CEPACOLE LOZANGE GIVEN. IV BOLUS INFUSING. IMAGING CALLED AND UPDATED REGARDING GASTROGRAPHIN STATUS, STATES THEY WILL BE HERE SHORTLY TO TRANSFER PT. NO ADDITIONAL REQUESTS OR COMPLAINTS. NG TUBE REMAINS CLAMPED. PT REPORTS MILD HEARTBURN, DENIES NAUSEA. CALL LIGHT WITHIN REACH. BED RAILS UP.
--- NOTE | 2023-04-25 16:00 | NUR ---
PT TO CT SCAN WITH CT TECHNITIANS.
--- NOTE | 2023-04-25 16:03 | NUR ---
PATIENT TO CT VIA WHEELCHAIR.
--- NOTE | 2023-04-25 16:24 | NUR ---
PT HERE FOR SMALL BOWEL OBSTRUCTION. PT AMBULATING INDEPENDENTLY AROUND UNIT, WITH ASSISTANCE DISCONNECTING NG TUBE. PT NPO BUT FOR SIPS AND CHIPS FOR COMFORT, TOLERATING WELL. NO BOWEL MOVEMENT SINCE 04/22/23, DENIES NAUSEA. PAIN 2-4/10 THIS SHIFT, PRN PAIN MEDCIATION GIVEN. NG TUBE IN PLACE WITH INTERMITTENT SUCTION, DARK GREEN FLUID IN SUCTION CANISTER. NO CHANGE OR S/SX OF INFECTION IN MIDLINE SURGICAL INCISION OR SURGICAL PUNCTURE WOUND. DRESSING ON MIDLINE INCISION HAS NO NEW DRAINAGE, PUNCTURE WOUND COVERED WITH ALLEVYN, C/D/I. PT NOT VOIDING QUANTITY SUFFICIENT THIS SHIFT, FLUID BOLUS GIVEN PER ORDER. PT TO IMAGING TODAY FOR SMALL BOWEL FOLLOW THROUGH, GIVEN GASTROGRAFIN FOR STUDY. PT HAS FAMILY IN ROOM FOR MAJORITY OF SHIFT, USES CALL LIGHT APPROPRIATELY.
--- NOTE | 2023-04-25 16:44 | NUR ---
PT RETURNED FROM CT SCAN. PT REQUESTS THAT NG TUBE REMAIN CLAMPED A BIT LONGER SO SHE CAN AMBULAT IN [place]. PT UP TO RESTROOM AND VOIDS 300ML YELLOW URINE. PT DENEIS PAIN AND NAUSEA BUT REPORTS BLOATING. PT DENIES S/S OF HYPOGLYCEMIA. NO ADDITIONAL REQUESTS OR COMPLAINTS. PT AMBULATING WITH , STEADY ON FEET.
[2023-04-25 17:37] VITALS: BP 127/45
--- NOTE | 2023-04-25 18:17 | NUR ---
PT LYING IN BED AWAKE VISITING WITH . PT DENIES PAIN AT THIS TIME. PT UP TO RESTROOM, SUCTION REAPPLIED TO NG TUBE. PT STATES NO NEEDS AT THIS TIME. CALL LIGHT WITHIN REACH, BED RAILS UP.
--- NOTE | 2023-04-25 18:36 | NUR ---
INCENTIVE SPIROMETER GIVEN TO PT PER ORDER, EDUCATION ON USE, PT VERBALIZES AND DEMONSTRATES UNDERSTANDING. DOES FIVE BREATHS WITH I.S. DEVICE, UP TO 1000.
--- NOTE | 2023-04-25 19:39 | NUR ---
REPORT RECEIVED FROM DAY SHIFT RN. PATIENT RESTING IN BED WITH FAMILY AT BEDSIDE. NO FURTHER NEEDS CALL LIGHT IN REACH.
[2023-04-25 20:43] VITALS: BP 122/56
--- NOTE | 2023-04-25 21:00 | NUR ---
PATIENT RESTING IN BED WITH AT BEDSIDE. VS AND I&Os OBTAINED AND RECORDED. SCHEDULED MEDICATIONS ADMINISTERED. ASSESSMENT COMPLETE. PATIENT REPORTS 3/10 PAIN IN LEFT LOWER ABD. PRN PAIN MEDICATION ADMINISTERED, SEE JUL. BOWEL TONES ACTIVE. NG TUBE ON LIWS. PATIENT HAS NO FURTHER NEEDS. CALL LIGHT IN REACH. IV FLUSHED AND WNL.
--- NOTE | 2023-04-25 22:48 | NUR ---
PATIENT RESTING IN BED ON BACK. PATIENT AMBULATED THE [place] WITH FAMILY X6 LAPS. CALL LIGHT IN REACH.
--- NOTE | 2023-04-26 00:27 | NUR ---
PATIENT UP TO BATHROOM WITH MINIMAL SBA TO VOID 400 mL OF YELLOW URINE. PATIENT BACK TO BED. SCDs IN PLACE. PATIENT HAS NO FURTHER NEEDS. CALL LIGHT IN REACH.
--- NOTE | 2023-04-26 02:18 | NUR ---
PATIENT IN BED RESTING ON BACK WITH EYES CLOSED. RESPIRATIONS EVEN AND UNLABORED. CALL LIGHT IN REACH.
--- NOTE | 2023-04-26 04:00 | NUR ---
PATIENT IN BED RESTING ON BACK. RESPIRATIONS EVEN AND UNLABORED. NG TUBE ON LIWS. CALL LIGHT IN REACH.
[2023-04-26 05:15] VITALS: BP 135/46
--- NOTE | 2023-04-26 05:28 | NUR ---
PATIENT RESTING IN BED. VS AND I&Os OBTAINED AND RECORDED. ASSESSMENT COMPLETE. PATIENT STATES 2/10 PAIN IN THROAT. PRN PAIN MEDICATION ADMINISTERED PER PATIENT REQUEST. BOWEL TONES ACTIVE IN ALL 4 QUADRANTS. PATIENT UP TO BATHROOM TO VOID WITH MINIMAL SBA. PATIENT BACK TO CHAIR. PATIENT HAS NO FURTHER NEEDS. CALL LIGHT IN REACH.
[2023-04-26 05:30] LABS: BASOPHILS 0.1 % (0-2); EOSINOPHILS 1.2 % (0-6); HEMATOCRIT 28.2 % (35.0-50.0); HEMOGLOBIN 9.4 g/dL (12.0-18.0); LYMPHOCYTES 13.4 % (24-44); MCH 27.3 (27-36); MCHC 33.3 g/dl (30-36); MONOCYTES 9.9 % (0-12); NEUTROPHILS 75.4 % (39-80); PLATELET COUNT 229 K/uL (140-440); RBC 3.45 M/ul (4.3-5.7); RDW 14.8 (10.5-15.0)
[2023-04-26 05:39] LABS: ANION GAP 8.1 (7-21); BUN/CREATININE RATIO 16.07 (6.0-28.6); CALCIUM 7.9 mg/dL (8.5-10.1); CREATININE, SERUM 0.56 mg/dL (0.55-1.02); POTASSIUM 3.1 mmol/L (3.5-5.1)
[2023-04-26 05:49] LABS: LACTIC ACID, BLOOD 0.7 mmol/L (0.4-2.0)
--- NOTE | 2023-04-26 08:04 | NUR ---
This SEPTIC TANK SETTER assumed SEPTIC TANK SETTER cares for this pt from dental equipment mechanic SEPTIC TANK SETTER. The PT is currently sitting up in the chair for breakfast. PT is requesting a shower once her gets here. PT knows to call for assistance when she is ready. Call light within reach.
--- NOTE | 2023-04-26 08:44 | NUR ---
RECIEVED REPORT FROM NURSE AT 0735. PT WAS AWAKE A+O SITTING UP IN CHAIR. PT REQUESTS NO CARES AT THAT TIME. RIGHT NOW PATIENT IS WALKING THE [place] WITH FAMILY. NO OTHER CARES NEEDED AT THIS TIME
--- NOTE | 2023-04-26 09:35 | NUR ---
pt assessment complete. no abnormal findings. pt states no pain at this time. incision with steri strips has old drainage. pt is in room family. no other concerns at this time call light within reach
[2023-04-26 09:58] VITALS: BP 101/49
--- NOTE | 2023-04-26 10:44 | NUR ---
pt is currently walking the halls with .
--- NOTE | 2023-04-26 10:52 | NUR ---
MS GUILLEN. WALKED HALLS WITH PT SHE AMBULATED. LISTENED EMPATHETICALLY. NORMALIZED PT EXPERIENCE. ENCOURAGE FOCUS ON PRESENT. PROVIDED SILETN PRAYER. TALKED WITH IN HALLWAY AFTER PT HAD RETURNED TO ROOM. EXPRESSED SITUATIONALLY APPROPRIATE SENTIMENTS. ENCOURAGED SELF CARE. NORMALIZED HIS EXPERIENCE. PROVIDED SILENT PRAYER.
[2023-04-26 13:10] VITALS: BP 118/50
--- NOTE | 2023-04-26 14:30 | NUR ---
THIS ACCOUNT RELATIONSHIP MANAGER RECIEVED IN REPORT THAT THIS PT WAS RECIEVING BG CHECKS THROUGHOUT THE NIGHT. THE ORDER WAS CHECKED WHICH STATED THE BG CHECKS WERE PRN. THIS MORNING THIS ACCOUNT RELATIONSHIP MANAGER CLARIFIED WITH THE PRIMARY RN IF THEY WOULD LIKE TO CONTINUE THE PRN CHECKS THROUGHOUT THE DAY. THE RN REQUESTED Q6 BLOOD GLUCOSEE TESTS. THIS IS WHY THE BLOOD SUGARDS WERE OBTAINEED AT 0800 AND 1400.
--- NOTE | 2023-04-26 16:44 | NUR ---
pt requested pain meds . pain level at 3. pt recieved toradol and also asked for a lozenge. no other cares requested or needed at this time. call light within reach
[2023-04-26 17:26] VITALS: BP 107/45
--- NOTE | 2023-04-26 19:40 | NUR ---
RECEIVED REPORT FROM DAY SHIFT RN. PATIENT IS UP TO BR A SBA. PATIENT ABLE TO VOID. PATIENT IS AMBULATING IN THE [place] W/FAMILY. PATIENT DENIES ANY PAIN.
--- NOTE | 2023-04-26 20:14 | NUR ---
PT. CALLED NURSES STATION REQUESTING ASSISTANCE WITH NG TUBE. THIS NEWS CAMERAMAN HOOKED PATIENT NG TUBE BACK TO INTERMITTENT SUCTION. CALL LIGHT LEFT WITHIN REACH. NO OTHER IMMEDIATE NEEDS AT THIS TIME.
[2023-04-26 21:20] VITALS: BP 107/45
--- NOTE | 2023-04-26 22:16 | NUR ---
PATIENTS VITALS TAKEN AND RECORDED. INTAKE AND OUTPUT RECORDED PM MEDS PER ORDER. PATIENT RATES PAIN IN THROAT FROM NG AT A 5/10, PRN TYLENOL GIVEN PER ORDER AND PER TUBE. PATIENTS NG IS CLLAMPED AT THIS TIME. IV INFUSING PER ORDER. PATIENT UP TO BR A SBA. PATIENT ABLE TO VOID. PATIENT IS BACK IN BED RESTING. PATIENT GIVEN ICE CHIPS FOR COMFORT. PRN LOZENGE GIVEN PER ORDER. PATIENT DENIES ANY FURTHER NEEDS. CLAL LIGHT IN REACH.
--- NOTE | 2023-04-26 22:55 | NUR ---
PATIENT IS RESTING IN BED WATCHING TV. PATIENTS NG HOOKED BACK UP TO LWIS. PATIENT DENIES ANY NEEDS. CALL LIGHT IN REACH. ROOM LIGHTS TURNED OF PER PATIENT REQUEST.
--- NOTE | 2023-04-27 00:04 | NUR ---
PATIENT IS RESTING IN BED WATCHING TV. PATIENT DENIES ANY PAIN OR NAUSEA. PATIENTS IV INFUSING PER ORDER. PATIENTS NG TO LWIS. PATIENT DENIES ANY NEEDS. CALL LIGHT IN REACH.
--- NOTE | 2023-04-27 02:00 | NUR ---
PATIENT IS RESTING IN BED WITH EYES CLOSED, RR 16. CALL LIGHT IN REACH. NG TO LWIS. IV INFUSING PER ORDER.
--- NOTE | 2023-04-27 02:38 | NUR ---
PATIENT UP TO BR A SBA. PATIENT ABLE TO VOID. PATIENT IS BACK IN BED RESTING. PATIENTS NG TO LWIS. PATIENTS IV INFUSING PER ORDER. PRN CEPACOL LOZENGE GIVEN PER ORDER FOR THROAT DISCOMFORT. PATIENT DENIES ANY FURTHER NEEDS. CALL LIGHT IN REACH.
--- NOTE | 2023-04-27 04:13 | NUR ---
PATIENT IS RESTING IN BED WITH EYES CLOSED, RR 15. NG TO LWIS. IV INFUSING PER ORDER. PATIENTS CALL LIGHT IN REACH.
[2023-04-27 05:11] VITALS: BP 111/47
--- NOTE | 2023-04-27 05:28 | NUR ---
LAB IN ROOM. PATIENTS VITALS TAKEN AND RECORDED. INTAKE AND OUTPUT RECORDED. PATIENT UP TO BR A SBA. PATIENT ABLE TO VOID. PATIENT RATES PAIN IN THROAT A 3/10, PRN TYLENOL GIVEN PER NG. PATIENT GIVEN PRN LOZENGE PER ORDER. PATIENT UP TO AMBULATE IN [place] IND. NO FURTHER NEEDS NOTED.
[2023-04-27 05:32] LABS: HEMOGLOBIN 8.7 g/dL (12.0-18.0)
[2023-04-27 05:34] LABS: BASOPHILS 0.4 % (0-2); EOSINOPHILS 2.1 % (0-6); HEMATOCRIT 26.3 % (35.0-50.0); LYMPHOCYTES 17.1 % (24-44); MCH 27.4 (27-36); MONOCYTES 9.8 % (0-12); NEUTROPHILS 70.6 % (39-80); PLATELET COUNT 222 K/uL (140-440); RBC 3.16 M/ul (4.3-5.7); RDW 15.5 (10.5-15.0)
[2023-04-27 05:40] LABS: ANION GAP 9.6 (7-21); BUN/CREATININE RATIO 17.85 (6.0-28.6); CALCIUM 7.8 mg/dL (8.5-10.1); CREATININE, SERUM 0.56 mg/dL (0.55-1.02); POTASSIUM 3.6 mmol/L (3.5-5.1)
--- NOTE | 2023-04-27 06:00 | NUR ---
pt AMBULATED 10 LAPS INDEPENDENTLY AROUND MS FLOOR. BACK IN ROOM, SITTING IN CHAIR. IV SITE FLUSHED WNL, IVF INFUSING ORDERED. NGT TO LOW INT SUCTION. CALL LIGHT WITHIN REACH. pt DENIES ADDITIONAL NEEDS.
--- NOTE | 2023-04-27 07:15 | NUR ---
This CONTINUOUS PROCESS TANNER ROTARY DRUM assumed CONTINUOUS PROCESS TANNER ROTARY DRUM cares for this pt from night custodian CONTINUOUS PROCESS TANNER ROTARY DRUM. Pt is currently sitting up in the chair. Denies any needs at this time.
--- NOTE | 2023-04-27 07:24 | NUR ---
REPORT RECEIVED FROM NIGHT RN, ALL QUESTIONS ANSWERED. PT SITTING UP IN RECLINER. DENIES PAIN OR NEEDS AT THIS TIME. CALL LIGHT IN REACH.
--- NOTE | 2023-04-27 07:57 | NUR ---
This LABOR LAW PROFESSOR asked the primary RN how often they would like BG checks on this pt. The nurse requested Q6h blood sugar checks. The plan of care is to get a BG check at 0800 and 1400.
--- NOTE | 2023-04-27 08:35 | NUR ---
MORNING ASSESSMENT COMPLETE. PT SITTING UP IN RECLINER, DENIES ABD PAIN OR NAUSEA. MIDLINE INCISION WITH STERISTRIPS CDI. PAST AMINATA SITE COVERED WITH ALLEVYN DRESSING, CDI. NG TO LIWS, MINIMAL AMOUNT DRAINAGE NOTED. BOWEL TONES ACTIVE THROUGHOUT. PT STATES PASSING GAS M ONDAY 04/25 PM AND NONE SINCE. ABD NON DISTENDED. IV SITE PATENT, FLUSHED. AT BEDSIDE. FRESH ICE CHIPS PROVIDED. PT DENIES FURTHER NEEDS AT THIS TIME. CALL LIGHT IN REACH.
[2023-04-27 09:03] VITALS: BP 110/47
--- NOTE | 2023-04-27 10:17 | NUR ---
MS ROUNDS. SHORT VISIT WHILE PT AMBULATED IN [place]. NV EXPRESSED OPTIMISM. PT ACCESSED SPIRITUAL RESOURCES. PROVIDED SUPPORTIVE PRESENCE. PROVIDED SILENT PRAYER.
--- NOTE | 2023-04-27 10:30 | NUR ---
PATIENT WALKING IN [place] WITH FAMILY. NO COMPLAINTS OR CONCERNS AT THIS TIME.
--- NOTE | 2023-04-27 13:06 | NUR ---
PT AMBULATING THE HALLWAY WITH FAMILY. DENIES NAUSEA OR PAIN AT THIS TIME. DENIES NEEDS AT THIS TIME.
[2023-04-27 14:01] VITALS: BP 110/47
--- NOTE | 2023-04-27 15:20 | NUR ---
IN TO DO A REPEAT BLOOD SUGAR ON PATIENT UPON RN REQUEST. BLOOD SUGAR WAS 76, RN NOTIFIED. PATIENT SITTING UP IN CHAIR FEELING FINE. AT BEDSIDE. CALL LIGHT IN REACH. NO FURTHER NEEDS AT THIS TIME.
--- NOTE | 2023-04-27 15:28 | NUR ---
UR NOTE [facility] INTESTINAL OBSTRUCTION (ISC) INPATIENT 04/23/23 MET CLINICAL INDICATIONS FOR ADMISSION TO INPATIENT CARE GL DAY 1 04/25/23 VARIANCE GL DAY 2 04/27/23 VARIANCE GL DAY 2
--- NOTE | 2023-04-27 17:07 | NUR ---
pt ambulating hallway. denies pain or needs at this time.
[2023-04-27 18:06] VITALS: BP 105/49
--- NOTE | 2023-04-27 19:30 | NUR ---
REPORT RECEIVED FROM REGLA GOODE. pt RESTING IN CHAIR WITH LEGS ELEVATED. FAMILY PRESENT IN ROOM. ICE CHIPS PROVIDED FOR COMFORT. pt DENIES NAUSEA. IVF INFUSING WNL. CALL LIGHT IN REACH.
[2023-04-27 21:39] VITALS: BP 110/52
--- NOTE | 2023-04-27 21:59 | NUR ---
pt RESTING IN BED ASLEEP, AWAKENS TO VOICE. DENIES ANY PAIN OR NAUSEA. IV SITE FLUSHED WNL, IVF INFUSING ORDERED. ASSESSMENT COMPLETE. BOWEL TONES ACTIVE, ABD SOFT, NON-TENDER. SBA TO RESTROOM FOR VOID AND BACK TO BED. pt REFUSES SCDS AT THIS TIME, HOPING TO SLEEP. CALL LIGHT IN REACH.
--- NOTE | 2023-04-27 23:29 | NUR ---
CALL LIGHT ANSWERED. IV PUMP ALARMING, DISTAL OCCLUSION. IV TUBING STRAIGHTENED, IVF NOW INFUSING WNL ORDERED. NO ADDITIONAL REQUESTS.
--- NOTE | 2023-04-28 01:04 | NUR ---
SBA PATIENT CALLED TO USE THE BATHROOM. PATIENT VOIDED 600ML YELLOW URINE. ICE CHIPS PROVIDED. WHITE BOARD UPDATED. NO OTHER NEEDS AT THIS TIME.
--- NOTE | 2023-04-28 03:05 | NUR ---
IV PUMP ALARMING, NEW BAG IVF INFUSING WNL. pt RESTING IN BED WITH EYES CLOSED. BREATHING EQUAL AND UNLABORED. NO DISTRESS NOTED.
[2023-04-28 05:14] VITALS: BP 120/56
--- NOTE | 2023-04-28 05:24 | NUR ---
CALL LIGHT ANSWERED. SBA TO RESTROOM FOR VOID AND BACK TO BED. IVF INFUSING WNL. ASSESSMENT COMPLETE. BOWEL TONES ACTIVE. pt DOES NOT REPORT FLATUS. DENIES PAIN/TENDERNESS WITH PALPATION, ABD SOFT. LUNG SOUNDS COARSE, pt WITH CONGESTED COUGH. STATES "THIS IS HOW I ALWAYS SOUND". SPO2 WNL. VSS. CALL LIGHT AND PERSONAL SUPPLIES IN REACH.
[2023-04-28 05:47] LABS: ANION GAP 8.6 (7-21); BUN/CREATININE RATIO 12.9 (6.0-28.6); CALCIUM 8.3 mg/dL (8.5-10.1); CREATININE, SERUM 0.62 mg/dL (0.55-1.02); MAGNESIUM 1.9 mg/dL (1.8-2.4); POTASSIUM 3.6 mmol/L (3.5-5.1)
--- NOTE | 2023-04-28 07:15 | NUR ---
REPORT RECEIVED FROM REGLA PINK. PT SITTING UP IN BED AND RESPONDS WHEN ADDRESSED. PT DENIES ANY NEEDS AT THIS TIME. CALL LIGHT IN REACH.
[2023-04-28 09:05] VITALS: BP 112/45
--- NOTE | 2023-04-28 09:07 | NUR ---
IN TO ADMINISTER MEDICATIONS, SEE MAR. PT DENIES PAIN AT THIS TIME. ASSESSMENT COMPLETE. LUNG SOUNDS CLEAR IN RUL AND MOIRA. DIMINISHED IN RLL AND LLL. BOWEL TONES ACTIVE. PT DENIES PASSING ANY FLATUS AT THIS TIME. PT REPORTS ABD TENDERNESS WITH PALPATION TO LLQ. MIDLINE STERI-STRIPS IN PLACE WITH SMALL AMOUNT OF SHADOWING NOTED. LLQ ALLEVYN C/D/I. EDEMA NOTED TO BLE. BLE ELEVATED IN BED ON A PILLOW. IV FLUSHES WNL. PT DENIES ANY OTHER NEEDS AT THIS TIME. CALL LIGHT IN REACH. FAMILY IN ROOM.
--- NOTE | 2023-04-28 11:02 | NUR ---
MS ROUNDS. 15 MINTUES. FAMILY IN ROOM. PT AND FAMILY ALL REMAIN OPTIMTISTIC WITH OVERALL POSITIVE ATTITUDE. PROVIDED SUPPORTIVE PRESENCE. PROVIDED HOSPITALITY. NORMALIZED EXPERIENCE. PROVIDED PRAYER.
--- NOTE | 2023-04-28 11:27 | NUR ---
PATIENT DID TEN LAPS AROUND MED SURG. SO FAR TODAY.
--- NOTE | 2023-04-28 11:35 | NUR ---
IN TO ROUND ON PT. PT SITTING UP IN BED. IV PUMP ALARMING, RESOLVED. PT DENIES ANY OTHER NEEDS AT THIS TIME. CALL LIGHT IN REACH. FAMILY IN ROOM.
--- NOTE | 2023-04-28 13:15 | NUR ---
IN TO ROUND ON PT. PT REPORTING BUTTOCKS BEING SORE. REDNESS NOTED TO BUTTOCKS. BARRIER CREAM APPLIED. ATTEMPTED TO PLACE WAFFLE MATTRESS. PT TRIED MATTRESS AND THEN WANTED THE MATTRESS REMOVED. MATTRESS REMOVED. PILLOW PLACED UNDER BUTTOCKS. PT DENIES ANY OTHER NEEDS AT THIS TIME. CALL LIGHT IN REACH.
[2023-04-28 14:05] VITALS: BP 121/46
--- NOTE | 2023-04-28 14:32 | NUR ---
IN WITH REGLA GILLIAM. REGLA GILLIAM STARTS NEW IV, SEE VASCULAR ACCESS. PT DENIES ANY OTHER NEEDS AT THIS TIME. PT UP AND AMBULATING [place] WITH SIGNIFICANT OTHER.
--- NOTE | 2023-04-28 15:50 | NUR ---
IN TO ROUND ON PT. PT SITTING UP IN BED. PT RESPONDS WHEN ADDRESSED. ASSESSMENT COMPLETE. LUNG SOUNDS RHONCHI THROUGHOUT ALL LOBES THAT CLEAR WITH COUGH. CLEAR IN RUL AND MOIRA. DIMINISHED IN RLL AND LLL. BOWEL TONES HYPOACTIVE IN RUQ, RLQ AND LLQ. ACTIVE IN LUQ. PT REPORTING ABD TENDERNESS WITH PALPATION TO LLQ. MILD DISTENTION NOTED. MIDLINE STERI-STRIPS IN PLACE WITH NO NEW DRAINAGE OR SHADOWING NOTED FROM PREVIOUS ASSESSMENT. LLQ ALLEVYN C/D/I. PT DENIES ANY OTHER NEEDS AT THIS TIME. CALL LIGHT IN REACH. SIGNIFICANT OTHER IN ROOM.
--- NOTE | 2023-04-28 16:16 | NUR ---
PT DOWN FOR IMAGING.
[2023-04-28 17:07] VITALS: BP 128/47
--- NOTE | 2023-04-28 17:20 | NUR ---
PT BACK FROM IMAGING. IN TO ROUND ON PT. PT SITTING UP IN BED. IV FLUSHES WNL. IV FLUIDS RESUMED. PT DENIES ANY OTHER NEEDS AT THIS TIME. CALL LIGHT IN REACH.
--- NOTE | 2023-04-28 18:51 | NUR ---
PT AMBULATING [place]. PT REQUESTING ICE WATER AND ICE CHIPS. ICE WATER AND ICE CHIPS PROVIDED. PT DENIES ANY OTHER NEEDS AT THIS TIME. PT CONTINUES TO AMBULATE [place] WITH FAMILY.
--- NOTE | 2023-04-28 19:25 | NUR ---
SHIFT REPORT RECEIVED FROM DAYSHIFT REGLA WOR[place] AT BEDSIDE, pt AWAKE AND RESTING IN BED, ON RA. RR EVEN AND UNLABORED. IV FLUIDS INFUSING DIRECTED. FAMILY IN ROOM, BOARD UPDATED AND CALL LIGHT IN REACH.
[2023-04-28 21:14] VITALS: BP 129/54
--- NOTE | 2023-04-28 21:15 | NUR ---
ASSESSMENT COMPLETE, pt DENIES PAIN AND NAUSEA. BOWEL TONES HYPOACTIVE TO ACTIVE. IV FLUIDS CONTINUE TO INFUSE DIRECTED. pt WISHES TO REMAIN OFF SCD'S AT THIS TIME, EDUCATION PROVIDED. CALL LIGHT IN REACH.
--- NOTE | 2023-04-28 22:22 | HP ---
[facility] [address], [place] [address] Signed ADMISSION DATE: 04/23/2023 READMISSION: April 23, 2023. REASON FOR ADMISSION: Early postoperative ileus or small bowel obstruction. HISTORY OF PRESENT ILLNESS: This 67-year-old white woman had mid rectal cancer, underwent a low anterior resection by me on April 19, 2023. She was discharged on April 22, 2023, following a non-opiate postoperative pain protocol, having tolerated oral intake including solid food and having bowel movements and doing well. Upon return to her home yesterday in [place], [place], she did have some bloating and fullness following a meal at home. This morning, she was able to take yogurt, but not very well and by later in the day had a feeling of "acid reflux." She has passed no flatus or stool today, only small amount of flatus early this morning. She presented to the emergency room where she was thoroughly evaluated by Dr. Ashford. A CT scan of the abdomen was performed, which showed diffusely dilated small bowel throughout the abdomen. There were reported air-fluid levels, though this is not a dominant finding on my review of the x-ray. There is no sign of generalized free air. There is minimal fluid in the pelvis. Notably, a drain had been placed at time of operation and was removed prior to discharge. Her white count was normal at 10.4, hematocrit 38.2, potassium 3.7, creatinine 0.67. Liver enzymes were normal. A magnesium level is pending at this time. Quite notably, the patient has no complaints of abdominal pain, particularly she does have somewhat of a sore throat related to nasogastric tube placement. PHYSICAL EXAMINATION: GENERAL: Pleasant white woman accompanied by her . She does not appear systemically toxic. VITAL SIGNS: Temperature is 97.8, pulse 91, blood pressure 126/59, respiratory rate of 16. Trachea is midline. Nasogastric tube has light green bilious fluid draining from it. Only about 250 mL has been withdrawn. CHEST: Shows normal respiratory excursion without tachypnea. HEART: Regular. ABDOMEN: Not particularly excessively distended. It is absolutely nontender. The low Electronically Signed By: SAMIRA RICE MD 04/28/23 2222 PATIENT NAME: TONA SHELBY HISTORY AND PHYSICAL DATE OF : 57 REPORT #: [id number] PHYSICIAN: SAMIRA RICE MD PCP: NATHALY CHAN PA-C REPORT IS CONFIDENTIAL AND NOT TO BE RELEASED WITHOUT AUTHORIZATION [facility] [address], [place] [address] Signed midline incision is healing well with no sign of herniation. EXTREMITIES: Show no clubbing, cyanosis, or edema. IMAGING: The CT scan was reviewed in detail, which showed dilated loops of small bowel, but not a typical finding of a small-bowel obstruction in my opinion. I see no evidence of generalized free air or worrisome fluid collection. ASSESSMENT: She may have an early postoperative bowel obstruction, but the possibility of simple ileus is not excluded either in my opinion. She is going to be admitted and given intravenous fluids, bowel rest generally with a nasogastric tube for decompression. We will continue to avoid opiate medication. Notably, she has no tenderness and no complaints of pain other than sore throat for which a Cepacol lozenge will be helpful. We will review her magnesium level today and obtain a KUB in the morning as well as electrolytes and magnesium at that time. Of special note, there is no clinical or radiographic evidence of incisional hernia, sign of internal hernia, volvulus or other similar malady, which could account for such symptoms at this time. MD CHUCK Chacon/MODL /[id number] cc: MD Nathaly Mccann PA-C Copies: NATHALY CHAN PA-C ~ Electronically Signed By: SAMIRA RICE MD 04/28/23 2222 PATIENT NAME: TONA SHELBY HISTORY AND PHYSICAL DATE OF : 57 REPORT #: [id number] PHYSICIAN: SAMIRA RICE MD PCP: NATHALY CHAN PA-C REPORT IS CONFIDENTIAL AND NOT TO BE RELEASED WITHOUT AUTHORIZATION
--- NOTE | 2023-04-29 00:30 | NUR ---
ROUNDED ON pt, IV PUMP ALAMRING. NEW BAG IV FLUIDS INFUSING DIRECTED. HVAC REFRIGERATION TECHNICIAN TOM PLACED SECOND IV, 22G TO LEFT WRIST PREVIOUS IV SITE WAS MINIMALLY TENDER, pt REPORTS TENDERNESS AFTER SHE USED HAND TO GET OOB AND BENDED WRIST ON DAYSHIFT, WILL CONTINUE TO MONITOR. IV FLUIDS INFUSING TO LEFT WRIST SITE. CALL LIGHT IN REACH, pt DENEIS ADDITIONAL NEEDS OR CONCERNS. CALL LIGHT IN REACH.
--- NOTE | 2023-04-29 03:31 | NUR ---
ROUNDED ON pt, pt RESTING IN BED WITH EYES CLOSED. ON RA, RR EVEN AND UNLABORED. NO DISTRESS NOTED. IV SITES X2 WNL, FLUIDS CONTINUE TO INFUSE DIRECTED. CALL LIGHT IN REACH.
[2023-04-29 04:40] VITALS: BP 112/57
--- NOTE | 2023-04-29 05:35 | NUR ---
NO ACUTE CHANGES TO ASSESSMENT, IV SITE TO LEFT HAND PAINFUL WHEN FLUSHED. SITE DC'D PER PROTOCOL, CATHETER TIP INTACT. IV FLUIDS CONTINUE TO INFUSE DIRECTED TO LEFT WRIST SITE. VS AND I&O'S COLLECTED AND CHARTED. CALL LIGHT IN REACH.
--- NOTE | 2023-04-29 07:20 | NUR ---
REPORT RECEIVED FROM REGLA CARBONE. PT SITTING UP IN BED. PT RESPONDS WHEN ADDRESSED. IV SITE NOTED TO BE EDEMATOUS. IV FLUIDS STOPPED AT THIS TIME. PT DENIES ANY OTHER NEEDS. PT UP AND AMBULATING CHRISTIE.
--- NOTE | 2023-04-29 09:51 | NUR ---
IV REMOVED EDEMA NOTED TO SITE. LEFT ARM ELEVATED ON PILLOW. IN TO ADMINISTER MEDICATIONS, SEE MAR. IV PEPCID HELD NO IV ACCESS. ASSESSMENT COMPLETE. LUNG SOUNDS DIMINISHED YET CLEAR THROUGHOUT ALL LOBES. COUGH NOTED. BOWEL TONES ACTIVE. MIDLINE SURGICAL SITE STERI-STRIPS IN PLACE WITH OLD SMALL AMOUT OF SHADOWING NOTED. LLW OLD AMINATA SITE ALLEVYN IN PLACE C/D/I. PT REPORT ABD TENDERNESS WITH PALPATION TO LLQ, PT STATES "IT IS NOT BAD IT WAS YESTERDAY." PT DENIES PASSING FLATUS TODAY. PT SITTING UP IN BED VISITING WITH FAMILY. PT DENIES ANY OTHER NEEDS AT THIS TIME. CALL LIGHT IN REACH.
--- NOTE | 2023-04-29 10:08 | NUR ---
MS GUILLEN. PT AMBULATING WITH DAUGHTERS. JOINED THE WALK. PROVIDED SUPPORTIVE PRESENCE. NORMALIZE EXPERIENCE. PROVIDED SILENT PRAYER. 15 MINUTES.
[2023-04-29 10:34] VITALS: BP 116/46
--- NOTE | 2023-04-29 11:30 | NUR ---
IN TO ANSWER CALL LIGHT. IV PUMP ALARMING, RESOLVED. NEW BACK OF FLUIDS STARTED, SEE MAR. PT SITTING UP IN BED AND REPORTS HAVING A SMALL LIQUID BM. SMALL LIQUID BM NOTED IN TOILET. PT DENIES ANY OTHER NEEDS AT THIS TIME. CALL LIGHT IN REACH. SIGNIFICANT OTHER IN ROOM.
--- NOTE | 2023-04-29 12:26 | NUR ---
UR NOTE MCG INTESTINAL OBSTRUCTION 04/28/23 VARIANCE GL DAY 2
[2023-04-29 13:14] VITALS: BP 115/50
[2023-04-29 13:39] LABS: BASOPHILS 0.5 % (0-2); EOSINOPHILS 2.4 % (0-6); HEMATOCRIT 29.5 % (35.0-50.0); HEMOGLOBIN 9.9 g/dL (12.0-18.0); LYMPHOCYTES 18.9 % (24-44); MCH 27.7 (27-36); MCHC 33.5 g/dl (30-36); MCV 82.7 fl (81-99); MONOCYTES 6.6 % (0-12); NEUTROPHILS 71.6 % (39-80); PLATELET COUNT 288 K/uL (140-440); RBC 3.57 M/ul (4.3-5.7); RDW 15.4 (10.5-15.0)
--- NOTE | 2023-04-29 13:40 | NUR ---
PT AMBULATING CHRISTIE.
--- NOTE | 2023-04-29 13:45 | NUR ---
THIS RN TALKED TO DR. RICE TO ASK IF PT CAN TAKE A SHOWER. PER DR. RICE "OKAY TO SHOWER."
[2023-04-29 14:01] LABS: ALBUMIN 2.4 g/dL (3.4-5.0); ALBUMIN/GLOBULIN RATIO 0.8 (1.1-2.4); ANION GAP 8.3 (7-21); BILIRUBIN, TOTAL 0.3 ng/dL (0.2-1.0); BUN/CREATININE RATIO 6.34 (6.0-28.6); CALCIUM 8.2 mg/dL (8.5-10.1); CREATININE, SERUM 0.63 mg/dL (0.55-1.02); MAGNESIUM 1.8 mg/dL (1.8-2.4); POTASSIUM 3.3 mmol/L (3.5-5.1); PROTEIN, TOTAL 5.4 g/dL (6.4-8.2)
--- NOTE | 2023-04-29 14:48 | NUR ---
IN TO ROUND ON PT. PT SITTING UP IN BED. PT REQUESTING TO SHOWER. SHOWER SET UP FOR PT. ASSESSMENT COMPLETE. LUNG SOUNDS CLEAR, BUT DIMINISHED. BOWEL TONES ACTIVE. PT DENIES PASSING FLATUS. PT DENIES AND TENDERNESS WITH ABD PALPATION. DISTENTION NOTED. PT SL FOR SHOWER. FLUIDS ON STANDBY. IV WRAPPED TO PREVENT FROM BEING SOILED IN SHOWER. PT DENIES ANY OTHER NEEDS FROM THIS RN AT THIS TIME. IN ROOM.
--- NOTE | 2023-04-29 14:50 | NUR ---
PATIENT WALKED SO FAR TODAY TWENTY-FIVE LAPS AROUND MED SURG.
--- NOTE | 2023-04-29 15:25 | NUR ---
IN TO ROUND ON PT. SHONA RN IN ROOM STARTING PTs IV FLUIDS BACK UP PT IS DONE WITH SHOWER. PT SITTING UP IN BED AND RESPONDS WHEN ADDRESSED. PT DENIES ANY OTHER NEEDS AT THIS TIME. CALL LIGHT IN REACH. IN ROOM.
[2023-04-29 17:36] VITALS: BP 123/45
--- NOTE | 2023-04-29 17:42 | NUR ---
IN TO ROUND ON PT. PT SITTING UP IN BED. PT RESPONDS WHEN ADDRESSED. DINNER TRAY ARRIVES. PT REPORTS HAVING A LIQUID BM AND PASSING FLATUS. LIQUID BM NOTED IN TOILET. VITALS AND I&Os COMPLETE. PT DENIES ANY OTHER NEEDS AT THIS TIME. CALL LIGHT IN REACH. IN ROOM.
--- NOTE | 2023-04-29 18:46 | NUR ---
PT AMBULATING CHRISTIE WITH .
[2023-04-30 04:22] VITALS: BP 120/53
[2023-04-30 05:36] LABS: BASOPHILS 0.3 % (0-2); EOSINOPHILS 2.5 % (0-6); HEMATOCRIT 27.8 % (35.0-50.0); HEMOGLOBIN 9.2 g/dL (12.0-18.0); LYMPHOCYTES 21.2 % (24-44); MCH 27.4 (27-36); MCHC 33.2 g/dl (30-36); MCV 82.6 fl (81-99); MONOCYTES 7.7 % (0-12); NEUTROPHILS 68.3 % (39-80); PLATELET COUNT 260 K/uL (140-440); RBC 3.36 M/ul (4.3-5.7); RDW 15.4 (10.5-15.0)
[2023-04-30 06:06] LABS: ALBUMIN/GLOBULIN RATIO 0.77 (1.1-2.4); ANION GAP 8.1 (7-21); BILIRUBIN, TOTAL 0.3 ng/dL (0.2-1.0); BUN/CREATININE RATIO 4.83 (6.0-28.6); CREATININE, SERUM 0.62 mg/dL (0.55-1.02); MAGNESIUM 1.8 mg/dL (1.8-2.4); POTASSIUM 3.1 mmol/L (3.5-5.1); PROTEIN, TOTAL 4.6 g/dL (6.4-8.2)
--- NOTE | 2023-04-30 06:58 | NUR ---
CALLED TO REPORT AM LABS. NEW ORDERS FOR POTASSIUM 80MEQ IV TO BE ADMINISTERED 20MEQ AT A TIME. MAGNESIUM SULFATE 2G IV ALSO ORDERED.
--- NOTE | 2023-04-30 07:00 | NUR ---
REPORT RECEIVED FROM REGLA OBANDO. PT SITTING UP IN BED. PT RESPONDS WHEN ADDRESSED. PT REPORTS HAVING A LIQUID BM. LIQUID BM NOTED IN TOILET. VOID NOTED IN HAT. ICE WATER PROVIDED. PT DENIES ANY OTHER NEEDS AT THIS TIME. CALL LIGHT IN REACH.
--- NOTE | 2023-04-30 08:15 | NUR ---
IN TO ADMINISTER MEDICATIONS, SEE MAR. PT SITTING UP IN BED AND RESPONDS WHEN ADDRESSED. ASSESSMENT COMPLETE. LUNG SOUNDS DIMINISHED THROUGHOUT ALL LOBES. RHONCHI IN RUL AND MOIRA. COUGH NOTED. BOWEL TONES ACTIVE. PT DENIES ABD TENDERNESS WITH PALPATION. PT REPORTS PASSING FLATUS THIS MORNING. MIDLINE SURGICAL SITE STERI-STRIPS IN PLACE WITH SMALL AMOUNT OF OLD SHADOWING NOTED. LLQ OLD AMINATA SITE COVERED WITH ALLEVYN C/D/I. PT DENIES ANY PAIN AT THIS TIME. PT DENIES ANY NAUSEA AT THIS TIME. TRACE AMOUNT OF EDEMA NOTED TO BLE. SCATTERED BRUISING NOTED TO PTs LOWER ABD. IV FLUSHES WNL. OLD NICOTINE PATCH REMOVED FROM RIGHT SHOULDER. NEW PATCH PLACED TO LEFT SHOULDER, SEE MAR. PT DENIES ANY OTHER NEEDS AT THIS TIME. CALL LIGHT IN REACH.
--- NOTE | 2023-04-30 09:43 | NUR ---
PT AMBULATING CHRISTIE. IV MAGNESIUM COMPLETE. PT DENIES ANY OTHER NEEDS AT THIS TIME. PT AMBULATING WITH FAMILY.
[2023-04-30 10:32] VITALS: BP 125/47
--- NOTE | 2023-04-30 11:40 | NUR ---
IN TO ROUND ON PT. PT AMBULATING OUT OF RESTROOM. PT DENIES ANY OTHER NEEDS AT THIS TIME. IV POTASSIUM STILL INFUSING WNL. PT STATES "I AM GOING TO WALK SOME MORE." PT DENIES ANY OTHER NEEDS AT THIS TIME. PT AMBULATING WITH .
--- NOTE | 2023-04-30 11:49 | NUR ---
PT BACK IN ROOM REQUESTING PRN MAALOX. PRN MAALOX ADMINISTERED, SEE MAR. PT DENIES ANY OTHER NEEDS AT THIS TIME. CALL LIGHT IN REACH. IN ROOM WITH PT.
--- NOTE | 2023-04-30 12:29 | NUR ---
PATIENT WALKED AROUND MED [facility] WITH DID 20 LAPS SO FAR.
--- NOTE | 2023-04-30 12:33 | NUR ---
IN IV PUMP ALARMING, RESOLVED. IV POTASSIUM COMPLETE, NEW BAG STARTED, SEE MAR. PT SITTING UP IN BED. PT DENIES ANY OTHER NEEDS AT THIS TIME. CALL LIGHT IN REACH. FAMILY IN ROOM. LUNCH TRAY ARRIVES.
[2023-04-30 13:22] VITALS: BP 125/59
--- NOTE | 2023-04-30 13:42 | NUR ---
IN TO ROUND ON PT. PT SITTING UP IN RECLINER. PT REQUESTING MAALOX. PRN MAALOX ADMINISTERED, SEE MAR. PT DENIES ANY OTHER NEEDS AT THIS TIME. IV INFUSING WNL. CALL LIGHT IN REACH. FAMILY IN ROOM.
--- NOTE | 2023-04-30 13:54 | NUR ---
PT AMBULATING CHRISTIE WITH .
--- NOTE | 2023-04-30 14:55 | NUR ---
ADMIN ZOFRAN 4MG IV FOR N/V. PATIENT VOMITED APPROX 400ML CLEAR LIQUIDS.
--- NOTE | 2023-04-30 15:32 | NUR ---
IN TO ROUND ON PT. PT SITTING UP IN BED. IV POTASSIUM STARTED, SEE MAR. ASSESSMENT COMPLETE. LUNG SOUNDS CLEAR THROUGHTOUT ALL LOBES. DIMINISHED IN LLL. BOWEL TONES ACTIVE. ABD NON-TENDER WITH PALPATION. ABD DISTENTION NOTED. PT DENIES NAUSEA AT THIS TIME. PT STATES "IT IS JUST BURNING" WHILE POINTING TO EPIGASTRIC AREA. MIDLINE INCISION STERI-STRIPS NO CHANGE FROM PREVIOUS ASSESSMENT. LLQ OLD AMINATA SITE ALLEVYN IN PLACE, NO CHANGE FROM PREVIOUS ASSESSMENT. IV INFUSING WNL. PT DENIES ANY OTHER NEEDS AT THIS TIME. CALL LIGHT IN REACH. IN ROOM.
--- NOTE | 2023-04-30 15:50 | NUR ---
THIS RN ATTEMPTED TO CALL DR. RICE.
--- NOTE | 2023-04-30 16:33 | NUR ---
IN TO ROUND ON PT. PT SITTING UP IN BED VISITING WITH FAMILY. IV PUMP ALARMING, RESOLVED. PT DENIES ANY OTHER NEEDS AT THIS TIME. CALL LIGHT IN REACH.
--- NOTE | 2023-04-30 16:49 | NUR ---
PT AMBULATING CHRISTIE WITH . NO NEEDS FROM THIS RN.
--- NOTE | 2023-04-30 17:34 | NUR ---
IN TO ROUND ON PT. PT SITTING UP IN BED. PT STATES "I DO NOT REALLY WANT TO EAT." DINNER TRAY REMOVED PER PT REQUEST. PT CONTINUES TO REPORT EPIGASTRIC/ESOPHAGEAL "BURNING." PT DENIES ANY OTHER NEEDS AT THIS TIME. CALL LIGHT IN REACH.
--- NOTE | 2023-04-30 18:30 | NUR ---
IN TO ROUND ON PT. PT SITTING UP IN BED VISITING WITH . VITALS AND I&Os COMPLETE. PT DENIES ANY OTHER NEEDS AT THIS TIME. CALL LIGHT IN REACH. IV INFUSING WNL.
[2023-04-30 18:34] VITALS: BP 120/51
[2023-04-30 20:16] VITALS: BP 121/47
--- NOTE | 2023-05-01 02:24 | NUR ---
PT C/O ACID REFLUX THAT IS MINOR BUT SHE REFUSES MALOX TONIGHT, SHE HAD HER PEPCID EARLIER AND STATES IT IS HELPING. SHE SAYS SHE JUST FEELS YUCKY AND DOESN'T NEED ANYTHING OR WANT TO HAVE FLUIDS. 0 EMESIS
[2023-05-01 05:53] VITALS: BP 112/51
--- NOTE | 2023-05-01 07:37 | NUR ---
PT ALERT AND INTERACTIVE AT TIME OF SHIFT REPORT. SITTING UP WATCHING TV DENIES PAIN OR NAUSEA, REQUESTS COFFEE. PT PASSED SOME LIQUID STOOL THIS MORNING. FRESH H20 TO BESDIE CALL LIGHT IN REACH
--- NOTE | 2023-05-01 08:43 | NUR ---
PT CONTINUES UP IN BED TALKING WITH A VISITOR, MORNING MEDS ADMINISTERED. PT DENIES NEEDS AT THIS TIME. PERSONAL CARE ITEMS PROVIDED PT STATES SHE WILL GET UP SOON AND RESUME WALKING AND DO SELF CARES.
--- NOTE | 2023-05-01 09:09 | NUR ---
PT UP AMBULATING THE CHRISTIE DR RICE IN TO TALK TO HER. PLANS GOING FORWARD DISCUSSED AT LENGTH PT VERBALIZES UNDERSTANDING.
[2023-05-01 09:40] LABS: ANION GAP 7.9 (7-21); BUN/CREATININE RATIO 2.89 (6.0-28.6); CALCIUM 8.3 mg/dL (8.5-10.1); CREATININE, SERUM 0.69 mg/dL (0.55-1.02); MAGNESIUM 2.2 mg/dL (1.8-2.4); POTASSIUM 3.9 mmol/L (3.5-5.1)
--- NOTE | 2023-05-01 10:09 | NUR ---
PT BACK TO HER ROOM IN THE COMPANY OF HER . UNDERGARMENTS PROVIDED PER REQUEST WELL A FULL LIQUID MENU WITH INSTRUCTIONS. PT DENIES PAIN OR NAUSEA SO FAR THIS SHIFT STATES SHE FEELS "GOOD"
[2023-05-01 10:30] VITALS: BP 116/58
--- NOTE | 2023-05-01 11:28 | NUR ---
PT UP AMBULATING THE HALLWAY AGAIN IN THE COMPANY OF HER AND 2 VISITORS. SHE IS UPBEAT AND TALKATIVE NO C/O
[2023-05-01 14:00] VITALS: BP 99/52
--- NOTE | 2023-05-01 14:32 | NUR ---
PT CONTINUES TO WALK LAPS INTERMITTANTLY IN THE HALLS. SITTING UP IN BED NOW AGREES SMALL AMOUNT OF FULL LIQUID LUNCH WENT WELL, NO NAUSEA OR PAIN. DENIES NEEDS AT THIS TIME
--- NOTE | 2023-05-01 16:12 | NUR ---
PT UP IN THE CHAIR WATCHING TV DENIES NEEDS OF ANYTHING. USES I/S EFFECTIVELY WITH ENCOURAGEMENT
--- NOTE | 2023-05-01 18:00 | NUR ---
PT TOLERATES A SMALL FULL LIQUID MEAL THIS EVENING NO NAUSEA OR INCREASED DISCOMFORTS. SHE IS UP IN THE CHAIR WATCHING TV DENIES ANY NEEDS
[2023-05-01 18:13] VITALS: BP 112/45
--- NOTE | 2023-05-01 20:00 | NUR ---
Pt c/o IV site R amr is painful, infiltrated, area red and slightly elevated. draws sluggish,cold pack given. Primary RN to be notified
--- NOTE | 2023-05-01 20:40 | NUR ---
ATTEMPTED IV X2, CALL TO FLEXOGRAPHIC PRESS OPERATOR FOR ULTRA SOUND. FULL BODY ASSESSMENT DONE. APPLIED CREAM TO SACRUM AREA, SKIN INTACT AND BLANCHABLE. APPLIED NEW FOAM. PROVIDED EDUCATION WITH TURNING IN THE BED, AND SHIFTING WEIGHT PATIENT VERBALIZED UNDERSTANDING.
--- NOTE | 2023-05-01 21:11 | NUR ---
Dr Villavicencio notified verbally of unable to restart IV after several attempts and . "is she tolerating and dirnking plenty of fluids?". Primary RN Suzanne notifed and the answer was "yes, no n/v, on full liquids, tolerating good". N.O per Dr Villavicencio, dont worry about IV site right now
[2023-05-01 21:30] VITALS: BP 116/52
[2023-05-02 07:00] VITALS: BP 125/52
--- NOTE | 2023-05-02 07:26 | NUR ---
PT SITTING UP IN BED AWAKE AND INTERACTIVE AT TIME OF SHIFT REPORT. IS PRESENT IN THE ROOM. FRESH H20 AND NEEDED ITEMS TO BEDSIDE. NO C/O NAUSEA OR PAIN
--- NOTE | 2023-05-02 08:50 | NUR ---
PT TOLERATES FULL LIQUID MEAL NO C/O DISCOMFORT OR NAUSEA. CONTINUES TO AMBULATE THE CHRISTIE STATES SHE DID 50 LAPS YESTERDAY. STILL PRESENT WITH HER SHE IS UP WATCHING TV AND DENIES ANY NEEDS OR CONCERNS
[2023-05-02 09:06] VITALS: BP 119/45
--- NOTE | 2023-05-02 10:27 | NUR ---
FOAM PAD APPLIED TO SACRUM PER REQUEST OF SORENESS. NO REDNESS OR S/S OF COMPROMISE. PT HAS REDDENED AREA INEER GLUTEAL FOLD BILATERALLY. AGREES SHE HAS BEEN SHOWERING AND HAS BARRIER CREAM SHE SELF APPLIES. PT IS UP AMBULATING AND CHANGING POSITIONS FREQUENTLY THROUGHOUT THE DAY.
--- NOTE | 2023-05-02 11:22 | NUR ---
PATIENT SAID SHE WOULD LIKE TO TAKE A SHOWER SOMETIME TODAY. SO I SET HER SHOWER UP FOR HER ALSO CHANGED THE BED LINENS. GOT HER A NEW GOWN AND HOUSE COAT, AND SOCKS. PATIENT IS NOW ABULATING IN THE CHRISTIE WITH FAMILY.
--- NOTE | 2023-05-02 12:45 | NUR ---
DR RICE IN TO SEE PT ALL QUESTIONS ANSWERED
--- NOTE | 2023-05-02 13:29 | NUR ---
PT UP AMBULATING THE CHRISTIE WITH HER . HAS CONTACTED KITCHEN FOR EVENING MEAL CHOICES. NO PAIN OR NAUSEA REPORTED THIS SHIFT PT AGREES SHE IS DOING WELL
[2023-05-02 14:10] VITALS: BP 133/59
--- NOTE | 2023-05-02 15:41 | NUR ---
PT CONTINUES TO AMBULATE INDEPENDANTLY THIS SHIFT. RETURNS TO ROOM, UP IN THE CHAIR WATCHING TV. DENIES ANY PAIN OR NAUSEA TODAY OR YESTERDAY. FRESH H20 AT BEDSIDE DENIES OTHER NEEDS
--- NOTE | 2023-05-02 17:32 | NUR ---
PT TOLERATES SALMON AND MASHED POTATOES FOR EVENING MEAL WELL TOLERATED. SHE REPORTS A BOIL OR SOMETHING ON HER BOTTOM. THERE IS A FIRM REDDENED AREA APPROX 4 CM ROUND AT THE BOTTOM OF HER LEFT BUTT CHEEK. ENCOURAGED PT TO REPORT THIS TO DR RICE FOR ASSESSMENT.
[2023-05-02 18:02] VITALS: BP 121/51
--- NOTE | 2023-05-02 19:21 | NUR ---
REPORT RECEIVED FROM DAY SHIFT RN. PT STANDING AT BEDSIDE. ALERT AND ORIENTED. DENIES NEEDS. IN ROOM. WHITE BOARD UPDATED. CALL LIGHT IN REACH.
[2023-05-02 20:11] VITALS: BP 119/47
--- NOTE | 2023-05-02 20:24 | NUR ---
EVENING ASSESSMENT COMPLETE. SCHEDULED MEDS ADMIN PER EMAR. PT DENIES PAIN OR NAUSEA. REPORTS "FEELING BLOATED" AFTER EVENING MEAL. BOWEL TONES ACTIVE. ABD SOFT AND MILDLY DISTENDED. PT REPORTS FLATUS. MIDLINE INCISION WITH STERI STRIPS INTACT, SMALL AMOUNT OLD SHADOWING NOTED. OLD AMINATA SITE LLQ WITH DRESSING CDI. PT DENIES QUESTIONS OR CONCERNS. CALL LIGHT IN REACH.
--- NOTE | 2023-05-02 23:13 | NUR ---
PT UP TO BR INDEPENDENTLY TO VOID 900 ML CLEAR YELLOW URINE. BACK TO BED. REPORTS BLOATING IMPROVED AFTER "PASSING GAS" DENIES PAIN OR NAUSEA. NO FURTHER NEEDS.
--- NOTE | 2023-05-03 01:38 | NUR ---
PT RESTING IN BED WITH EYES CLOSED. RESPIRATIONS EVEN. CALL LIGHT IN REACH.
--- NOTE | 2023-05-03 04:15 | NUR ---
PT LYING IN BED RESTING WITH EYES CLOSED. RESPIRATIONS EVEN. CALL LIGHT IN REACH.
--- NOTE | 2023-05-03 05:52 | NUR ---
PT AWAKE IN BED. DENIES PAIN OR NAUSEA. REPORTS PASSING "LOTS OF GAS" THROUGH THE NIGHT. ABD ASSESSMENT UNCHANGED. VS AND I&O OBTAINED, WNL. PT DENIES FURTHER NEEDS. CALL LIGHT IN REACH.
[2023-05-03 05:53] VITALS: BP 107/54
--- NOTE | 2023-05-03 07:14 | NUR ---
Report received from Swati ARAUZ. Patient resting in bed, no needs identified at this time. Will continue plan of care.
--- NOTE | 2023-05-03 07:59 | NUR ---
Scheduled medications administered and assessment complete. Patient is A+0, LSC, HRR, Bowel tones active x4, states no pain, no n/v, reports bowel movements yesterday and passing gas. Midline incision C/D/I with steri strips, small drain site to LLQ covered with new allevyn, C/D/I. Patient reports new "boil" on L inner gluteal cleft, assessed, redness noted, blanchable. Does appear as small blister/lesion. Pt states pain with pressure to the site. Assessment otherwise WNL. Patient ambulates to BR and then to chair for breakfast. No further needs at this time, call light in reach
--- NOTE | 2023-05-03 08:49 | NUR ---
Patient up ambulating in the hallway with her . Reports no needs at this time.
--- NOTE | 2023-05-03 09:57 | NUR ---
PATIENT IS VISTING WITH FAMILY. [employer] MEMBER WILL RETURN LATER TODAY. THE PATIENT WOULD LIKE TO GO HOME TODAY IF MEDICALLY STABLE.
--- NOTE | 2023-05-03 10:20 | NUR ---
MS GUILLEN. 15 MINUTES. PT AND DAUGHTER IN ROOM. BOTH EXPRESSED OPTIMISM AND HOPE FOR CONTINUED PROGRESS. LISTENED EMPATHETICALLY. ADVOCATED FOR SELF CARE. ENCOURAGED ASSERTIVENESS. PROVIDED SILENT PRAYER.
[2023-05-03 10:21] VITALS: BP 108/46
--- NOTE | 2023-05-03 10:50 | NUR ---
Patient up ambulating in hallway with family. Reports no needs at this time.
[2023-05-03] MEDS ORDERED: AMOX TR-K CLV1 EAC1 PO (11:51)
[2023-05-03] MEDS ORDERED: PEPCID20 MG PO (12:37)
--- NOTE | 2023-05-03 12:37 | NUR ---
RX for Pepcid 20mg PO BID #60 called in to [facility] by this pharmacy for Dr Villavicencio
--- NOTE | 2023-05-03 13:05 | NUR ---
Extensive discharge education provided to patient and her sitting at bedside, including low fiber diet plan, skin abcess I/D, antibiotic compliance, and sitz bath instructions. Patient has no questions at this time. All personal belongings returned and verified by . VSS. A+O on RA. 1 dose of PO ABX administered prior to discharge. No needs identified, pt stable upon discharge.
[2023-05-03 13:08] VITALS: BP 119/41
== END 2023-05-03 13:00 | disposition home or self-care (01) | DRG 389 ==
LOC: ED 15:35 → MS 19:27
PROVIDERS: Emergency Medicine; ADMIT Surgery; ATTEND Surgery
PROC: 0J990ZZ Drainage of Buttock Subcutaneous Tissue and Fascia, Open Approach (ICD-10-PCS; principal; 2023-05-03)
DX: K56.7 Ileus, unspecified (principal); C20 Malignant neoplasm of rectum; L02.31 Cutaneous abscess of buttock; E78.00 Pure hypercholesterolemia, unspecified; E16.2 Hypoglycemia, unspecified; Z90.49 Acquired absence of other specified parts of digestive tract; Z88.2 Allergy status to sulfonamides
CPT/HCPCS: 36415; 72192; 74018; 74177; 74270; 80048; 80053; 81003; 83605; 83735; 85025; 94640; 94760; 99285-25; 99406; A9270; J0131; J1644; J1885; J2405; J3475; J3480; J3490; J7060; J7121; Q9967

== ENCOUNTER 2024-06-29 07:07 | Day surgery (SDC) | payer OTHER ==
[~2024-06-29 07:07] MED LIST changes: +AMOX TR-K CLV1 EAC1 PO; +IBLOOD GLUCOSE TEST STRIP 1 EA TEST VI PRN; +LACTATED RINGER'S 1,000 ML IV SCH; +LIDOCAINE HCL 1% 5 ML SDV INJ ONE; +METAMUCIL660 GM PO; +MIDAZOLAM HCL 5 MG/5 ML VIAL IV PRN; +PEPCID20 MG PO; +fentaNYL citrate 100 MCG/2 ML VIAL IV PRN
[2024-06-29 07:22] VITALS: BP 131/82
[2024-06-29] MEDS ORDERED: CITRACAL + D E1 EACH PO (07:28)
[2024-06-29] MEDS ORDERED: fentaNYL citrate 100 MCG/2 ML VIAL ONE (08:12)
[2024-06-29] MEDS ORDERED: MIDAZOLAM HCL 5 MG/5 ML VIAL ONE (08:12)
--- NOTE | 2024-06-29 09:11 | NUR ---
06/29/24 0911 Caroline Fernandez 0960-PATIENT ARRIVED TO PACU ON 3L NC RR EVEN. PATIENT AWAKE DROWSY DENIES PAIN OR NAUSEA. ABDOMEN SOFT IVF INFUSING LAYING LEFT LATERAL. PLACED ON 2L NC 99% PATIENT DOZES TO SLEEP.
[2024-06-29 09:45] VITALS: BP 117/52
--- NOTE | 2024-07-03 09:51 | PATH ---
[facility] [address] [place], [place] [address] Signed SPECIMEN(S): A COLON POLYP, DESCENDING SPECIMEN(S): B ILEOCECAL VALVE POLYP SPECIMEN(S): C SIGMOID POLYP SPECIMEN(S): D SIGMOID, RENAE-ANASTAMOTIC COLON POLYP SPECIMEN SOURCE: A. COLON POLYP, DESCENDING B. ILEOCECAL VALVE POLYP C. SIGMOID POLYP D. SIGMOID, RENAE-ANASTAMOTIC COLON POLYP CLINICAL HISTORY: Pre-: 04/2023 rectosigmoid resection for adenocarcinoma. Post colon polyps x 5 FINAL PATHOLOGIC DIAGNOSIS: A. Descending colon polyp, polypectomy: - Tubular adenoma. - Negative for high-grade dysplasia and malignancy. B. Ileocecal valve polyp, polypectomy: - Tubular adenoma. - Negative for high-grade dysplasia and malignancy. C. Sigmoid polyp, polypectomy: - Fragments of tubular adenoma. - Negative for high-grade dysplasia and malignancy. D. Sigmoid colon, perianastomotic colon polyp, polypectomy: - Hyperplastic polyp. DDF MICROSCOPIC EXAMINATION: Histologic sections of all submitted blocks are examined by light microscopy. These findings, together with the gross examination, support the pathologic diagnosis. GROSS DESCRIPTION: A. The specimen, labeled and designated "TipTorsten, colon polyp, descending," is received in formalin and consists of one hawthorne soft tissue fragment, 0.5 cm. Entirely submitted in (A1). B. The specimen, labeled and designated "Tip, L, ileocecal valve polyp," is received in formalin and consists of four hawthorne soft tissue fragments, ranging from 0.1-0.3 cm. Entirely submitted in (B1). PATIENT NAME: TONA SHELBY PATHOLOGY DATE OF : 57 REPORT #: [id number] PHYSICIAN: DONNIE AVENDANO PCP: AMY CHAN PA-C REPORT IS CONFIDENTIAL AND NOT TO BE RELEASED WITHOUT AUTHORIZATION [facility] [address], [place] [address] Signed C. The specimen, labeled and designated "Tip, L, sigmoid polyp," is received in formalin and consists of three hawthorne soft tissue fragments, ranging from 0.2-0.5 cm. Entirely submitted in (C1). D. The specimen, labeled and designated "Tip, L, sigmoid, perianastomotic," is received in formalin and consists of three hawthorne soft tissue fragments, ranging from 0.1-0.3 cm. Entirely submitted in (D1). AB (under the direct supervision of a pathologist) The Gross Description was prepared using a voice recognition system. The report was reviewed for accuracy; however, sound-alike word errors, addition and/or deletions may occur. If there is any question about this report, please contact Client Services. ADDITIONAL NOTES: Immunohistochemical and/or in situ hybridization studies if performed in this case included appropriate positive controls that reacted as expected. This test was developed and its performance characteristics determined by [facility]. It has not been cleared or approved by the U.S. Food and Drug Administration. The FDA has determined that such clearance or approval is not necessary. This test is used for clinical purposes. It should not be regarded as investigational or for research. [facility] is certified under the Clinical Laboratory Improvement Amendments of 1988 (CLIA) as qualified to perform high complexity clinical laboratory testing. PERFORMING LABORATORY: Technical component was performed by [facility], [address] [place] [address] (CLIA# [id number]). Professional interpretation was performed by [facility], [address] [place] [id number] (CLIA#: [id number]). Diagnostician: George Victoria DO Pathologist Electronically Signed 07/03/2024 Copies: ~ PATIENT NAME: TONA SHELBY PATHOLOGY DATE OF : 57 REPORT #: [id number] PHYSICIAN: DONNIE PATHOLOGY PCP: AMY CHAN PA-C REPORT IS CONFIDENTIAL AND NOT TO BE RELEASED WITHOUT AUTHORIZATION
--- NOTE | 2024-07-03 12:42 | OR ---
[facility] [address] [place], [place] [address] Signed DATE OF OPERATION: 06/29/2024 SURGEON: Samira Rice MD PREOPERATIVE DIAGNOSIS: History of low anterior resection for adenocarcinoma in 2022 (67 lymph nodes negative). POSTOPERATIVE DIAGNOSIS: Polyps x5. PROCEDURES: Total colonoscopy to cecum with cold snare polypectomy x2, cold morcellation polypectomy x3. ANESTHESIA: Intravenous sedation, fentanyl 100 mcg and Versed 6 mg. INDICATIONS FOR THE PROCEDURE: This 68-year-old white woman is a patient of [facility]. She underwent low anterior resection by [facility] in 2022 for adenocarcinoma of the colon. She has family history of colon cancer as well. She was noted to have 67 lymph nodes negative for metastatic disease on resection and did not undergo chemotherapy. She is admitted at this time to undergo surveillance colonoscopy, understand the risk of bleeding, infection, and perforation. FINDINGS: The prep was good. Complete colonoscopy was undertaken to the cecum without question. She had a very small and subtle polyp of the ileocecal valve, which was excised with cold morcellation technique. She had a mid left colonic sessile polyp, which was excised with cold snare technique. A clarissa-anastomotic small polyp, which was excised with cold morcellation technique and in the linda sigmoid, two small polyps, one excised with cold snare technique, the other with cold morcellation technique. The anastomosis was widely patent and completely viable. The silk sutures from anastomosis were visible. DESCRIPTION OF PROCEDURE: The patient was brought to the endoscopy suite and placed in lateral decubitus position given intravenous sedation to the point of slurred speech and nystagmus. Digital rectal examination was normal. Electronically Signed By: SAMIRA RICE MD 07/03/24 1242 PATIENT NAME: TONA SHELBY OPERATIVE REPORT DATE OF : 57 REPORT #: [id number] PHYSICIAN: SAMIRA RICE MD PCP: NATHALY CALDERÓN PA-C REPORT IS CONFIDENTIAL AND NOT TO BE RELEASED WITHOUT AUTHORIZATION [facility] [address] [place], [place] [address] Signed An Olympus video colonoscope was passed in the rectum promptly noting the anastomosis. The side-to-end coloproctostomy was apparent. The scope was advanced into the colon and in the left colon, a small sessile polyp was noted. Given its optimal position, cold snare polypectomy was undertaken, specimen passed for Pathology. The scope was advanced beyond this ultimately to the cecum. The ileocecal valve and appendiceal orifice were visualized. There was a very subtle, but real polyp, most likely adenomatous based on narrow band imaging that was present. It was excised with cold morcellation technique. The scope was then withdrawn. Examination undertaken more fully. Previous area of snare polypectomy in the left colon was noted. In the linda sigmoid were two small polyps, one large than the other one was excised with cold snare technique, the other with cold morcellation technique. Withdrawal to the anastomosis itself showed a very small polyp in the area of the anastomosis, which was excised with cold morcellation technique. Further withdrawal showed no other abnormality, specifically rectum being normal. The scope was removed. The patient was taken to the recovery room in good condition. CONCLUDING DIAGNOSIS: Polyps x5, all small. PLAN: Recommend repeat colonoscopy in one year or sooner if symptoms should develop. She will return to the ongoing care of PA. Charlene MD CHUCK Chacon/MODL /[id number] cc: Nathaly Calderón PA-C Copies: NATHALY CALDERÓN PA-C ~ Electronically Signed By: SAMIRA RICE MD 07/03/24 1242 PATIENT NAME: TONA SHELBY OPERATIVE REPORT DATE OF : 57 REPORT #: [id number] PHYSICIAN: SAMIRA RICE MD PCP: NATHALY CALDERÓN PA-C REPORT IS CONFIDENTIAL AND NOT TO BE RELEASED WITHOUT AUTHORIZATION
== END 2024-06-29 09:50 | disposition home or self-care (01) ==
LOC: DS 07:07
PROVIDERS: ATTEND Surgery
PROC: 0DBN8ZZ Excision of Sigmoid Colon, Via Natural or Artificial Opening Endoscopic (ICD-10-PCS; 2024-06-29)
PROC: 0DBG8ZZ Excision of Left Large Intestine, Via Natural or Artificial Opening Endoscopic (ICD-10-PCS; 2024-06-29)
PROC: 0DBC8ZZ Excision of Ileocecal Valve, Via Natural or Artificial Opening Endoscopic (ICD-10-PCS; principal; 2024-06-29 08:15)
DX: D12.5 Benign neoplasm of sigmoid colon (principal); D12.4 Benign neoplasm of descending colon; D12.0 Benign neoplasm of cecum; K63.5 Polyp of colon; E78.5 Hyperlipidemia, unspecified; Z88.2 Allergy status to sulfonamides; Z79.899 Other long term (current) drug therapy; Z85.038 Personal history of other malignant neoplasm of large intestine; Z90.711 Acquired absence of uterus with remaining cervical stump; Z80.0 Family history of malignant neoplasm of digestive organs
CPT/HCPCS: 99153; G0500; J2250; J3010; J7121